=== PATIENT | female | born 1955 | race American Indian/Alaskan Native ===

== ENCOUNTER 2017-08-11 17:16 | Emergency (ER) | payer MEDICAID, OTHER, SELFPAY | END 2017-08-11 21:48 | disposition home or self-care (01) | PROVIDERS: Emergency Provider Emergency Medicine; Family Provider Family Medicine; PCP Family Medicine; Visit Provider Emergency Medicine | DX: R10.9 Unspecified abdominal pain (principal); K92.1 Melena | CPT/HCPCS: 74177; 80053; 81003; 83605; 83690; 85025; 93005; 93010; 96361; 96374; 96375; 96376; 99058; 99285; J1200; J2270; J2405; J2930; Q9967 ==

== ENCOUNTER 2017-10-06 08:10 | Day surgery (SDC) | payer MEDICAID, SELFPAY ==
--- NOTE | 2017-10-06 | PATH_ITS ---
[facility] Accession Number: [id number] . 01 Material submitted: . RECTAL . 02 Diagnosis: Rectum, Biopsies: Colorectal mucosa with no diagnostic abnormality. Negative for active or microscopic colitis. Negative for granulomata, dysplasia or malignancy. I/10/07/2017 . 02 Electronically signed: . Teodoro Bobo MD, PhD, Pathologist NPI- [id number] . 01 Gross description: . Received in one formalin-filled container, labeled with the patient's name, labeled rectal, are multiple less than 0.1 cm to 0.3 cm portions of tissue, which are filtered, wrapped, and entirely submitted in one cassette. ([id number]) /FRR . 02 Pathologist provided ICD-10: K62.5 . 02 CPT . 402416 Performed at: 01 [facility] [address] [id number] MD Enrique Escobedo MD Phone: [phone] Performed at: 02 [facility] [address] [place], [place] [id number] MD Marshall Sen MD Phone: [phone]
--- NOTE | 2017-10-06 08:08 | PM.HP.1 ---
History of Present Illness Date Patient Seen: 10/06/17 Time Patient Seen: 08:54 Chief complaint: COLONOSCOPY [id number] Narrative: 62-year-old medically complicated female status post partial colectomy for diverticulitis in the past who recently presented with pain and rectal bleeding. Colonoscopy is recommended. Patient History Comment: Her past medical history, past surgical history, family history, allergies, and medications have not changed since her initial evaluation in the office on August 22, 2017. That history physical examination is documented and on the chart. Family & Social History Family History: Reviewed 10/06/17 by Travis Miguel MD [facility] Home Medications Medication Instructions Recorded Confirmed Type montelukast [Singulair] 10 mg PO QDAY #30 tab 11/27/16 10/06/17 Rx atenolol 50 mg PO QDAY #30 tab 12/30/16 10/06/17 Rx diphenhydramine HCl [Benadryl 25 mg PO Q6HP PRN #120 tab 07/17/17 10/06/17 Rx Allergy] meloxicam [Mobic] 7.5 mg PO QDAY #30 tab 07/17/17 10/06/17 Rx docusate sodium 300 mg PO HS #0 07/27/17 10/06/17 History amitriptyline 50 mg PO HS #30 tab 07/31/17 10/06/17 Rx gabapentin 600 mg tablet 600 mg PO BID #60 tab 09/19/17 10/06/17 Rx tramadol 50 mg tablet 50 mg PO Q6HP PRN #120 tab 09/24/17 10/06/17 Rx albuterol sulfate 1.25 mg INHALATION BID 10/06/17 10/06/17 History albuterol sulfate [Proventil HFA] 1 puff INH BID 10/06/17 10/06/17 History beclomethasone dipropionate [Qvar] 1 puff IH BID 10/06/17 10/06/17 History furosemide 20 mg PO PRN PRN 10/06/17 10/06/17 History [id number] 2 drp OTIC SEE INSTRUCTIONS 10/06/17 10/06/17 History oxycodone 5 mg PO QID 10/06/17 10/06/17 History prednisone 40 mg PO AMCC PRN 10/06/17 10/06/17 History tiotropium bromide [Spiriva with 1 cap INHALATION DAILY 10/06/17 10/06/17 History HandiHaler] zolpidem 5 mg PO HSP 10/06/17 10/06/17 History Allergies Allergy/AdvReac Type Severity Reaction Status Date / Time barley [BARLEY] Allergy Severe reports Verified 10/06/17 08:25 sneezing and everything closes up iodine [IODINE] Allergy Mild BLISTER Verified 10/06/17 08:25 Review of Systems Review of Systems All systems reviewed & are unremarkable except as noted in HPI and below Exam Narrative Exam Narrative: Obese female in no acute distress. Alert oriented x3 Chest clear to auscultation. No wheezes today. Abdomen obese but soft. Notable for incisional hernia. No masses. Extremities show no clubbing or cyanosis. She does have bilateral lower extremity edema which is chronic. Objective Labs Labs: No recent laboratory radiographic studies since her evaluation of August 22, 2017. Assessment & Plan (1) Rectal bleeding: Current visit: Yes Status: Acute Plan: Assessment/Plan Narrative: 62-year-old female with rectal bleeding of unclear etiology. I reiterated my recommendation for colonoscopy. Technical details of the procedure were again reviewed. Risks, benefits, and alternatives were also reviewed as previously documented in my note of August 22, 2017. That note is on the chart today. Consent is on the chart as well. Patient agrees to proceed. Colonoscopy today as planned.
--- NOTE | 2017-10-06 08:15 | PM.PREOP ---
Pre-operative Note Interval Note Pre-op Check: History & Physical Reviewed by Physician, Exam Performed and History & Physical exam performed today H&P completed within 30 days and has changed as indicated here:: Patient seen and examined again today. History and physical examination as per note of August 22, 2017 is unchanged. Proceed with colonoscopy as planned. ASA Class (for procedural sedation): II
[2017-10-06] MEDS: SODIUM CHLORIDE 0.9% 1,000 ML 21 ML IV (08:48)
--- NOTE | 2017-10-06 09:15 | PM.OP.ENDO ---
Operative Date/Time/Diagnoses - Date of procedure: 10/06/17 Time of procedure: 09:15 Pre-op diagnosis: Rectal bleeding Post-op diagnosis: same (Likely secondary to internal hemorrhoids) Procedure & Clinicians Study performed: 1. Sedation per surgeon 2. Colonoscopy with cold forceps biopsies Same procedure as scheduled: Yes Indications: 62-year-old female who presented recently with rectal bleeding. Colonoscopy was recommended. Surgeon: Travis Miguel Procedure Notes SCOAP/Timeout: Yes Procedure in detail: After obtaining informed consent, the patient was brought to the GI suite and placed in the left lateral decubitus position on the examination table. After placement of appropriate monitors, the patient was given incremental doses of Versed and Fentanyl until an appropriate level of sedation was achieved. A time out was held per SCOAP protocol. A digital rectal examination was performed and did not reveal any masses or obstructing lesions. The colonoscope was gently passed into the patient's anus and the entire colon navigated to the level of the cecum with minimal difficulty. Patient had a widely patent colo colonic anastomosis at approximately 40 cm from the anal verge. Entire colonic length was approximately 70 cm. Terminal ileum was intubated and noted to be grossly normal. Once in the cecum, the scope was withdrawn being sure to go before and beyond all mucosal folds and prominences and get an excellent examination. The findings are noted above. No polyps or neoplasms are appreciated. Overall the bowel prep was moderately poor but we were able to achieve visualization of most of the colon with irrigation. At the level of the rectal vault, the scope was retroflexed and the internal anal canal was examined. Grade 3 internal hemorrhoids were noted. No other abnormalities. Random rectal biopsies were taken given that the rectal mucosa appeared minimally inflamed. The scope was straightened and air aspirated from the colon. The instrument was removed from the patient's body and the procedure was concluded. The patient was allowed to awaken from sedation without difficulty and taken to the post-anesthesia care unit in good condition. Scope withdrawal time: 7:06 min Sedation minutes: 14 Findings: internal hemorrhoids and other findings (See the above procedure note for details. No significant findings other than hemorrhoids however.) Specimen(s): other (Rectal biopsies) Complications: none Recommendations: Colonscopy in 5 years, High fiber diet and Will call with biopsy results Plan for aftercare: 1. Discharge to home 2. Follow up with primary physician later this week as scheduled Follow up: as needed Disposition: PACU
[2017-10-06 09:16] VITALS: BP 99/61; PULSE 81; RESP 20; TEMP 36.4; O2SAT 96
[2017-10-06] MEDS: MIDAZOLAM 5 MG/5 ML VIAL IV (09:18)
[2017-10-06] MEDS: fentaNYL 250 MCG/5 ML INJ IV (09:19)
[2017-10-06 09:22] VITALS: BP 101/72; PULSE 82; RESP 17; O2SAT 96
[2017-10-06 09:28] VITALS: BP 103/73; PULSE 79; RESP 18; O2SAT 97
[2017-10-06 09:32] VITALS: BP 114/73; PULSE 84; RESP 20; O2SAT 96
[2017-10-06 09:39] VITALS: BP 111/72; PULSE 82; RESP 15; TEMP 36.3; O2SAT 96
== END 2017-10-06 09:46 | disposition home or self-care (01) ==
PROVIDERS: Family Provider Family Medicine; PCP Family Medicine; Visit Provider Surgery
PROC: 0DJD8ZZ Inspection of Lower Intestinal Tract, Via Natural or Artificial Opening Endoscopic (ICD-10-PCS; CPT 45378; principal; 2017-10-06 08:45)
DX: K62.5 Hemorrhage of anus and rectum (principal); K64.2 Third degree hemorrhoids; Z90.49 Acquired absence of other specified parts of digestive tract
CPT/HCPCS: 45380; 99152; J2250; J3010

== ENCOUNTER 2017-10-24 09:09 | Inpatient (IN) | payer MEDICAID, OTHER, SELFPAY ==
[2017-10-24] VITALS (8 sets, daily range): BP systolic 120–156; BP diastolic 74–98; PULSE 93–115; RESP 16–22; TEMP 35.6–37.2; O2SAT 92–97; BMI 35.2; BMI 35.3
--- NOTE | 2017-10-24 09:25 | DI.CT.S_ITS ---
PROCEDURE: CT ABDOMEN PELVIS W CON INDICATIONS: pain with history of obstruction TECHNIQUE: After the administration of intravenous contrast, 5 mm thick sections acquired from the diaphragm to the symphysis. 5 mm coronal and sagittal reformats were acquired. For radiation dose reduction, the following was used: automated exposure control, adjustment of mA and/or kV according to patient size. COMPARISON: [facility], CT, ABDOMEN/PELVIS WITH CONTRAST, 07/25/2017, 11:10. [facility], CT, ABDOMEN/PELVIS WITH CONTRAST, 08/11/2017, 19:18. FINDINGS: Image quality: Excellent. ABDOMEN: Lung bases: Lung bases are clear. Heart size is normal. Solid organs: Liver is normal in size and enhancement. Gallbladder is normal. Biliary system is non dilated. Pancreas enhances normally. Spleen is normal in size and enhancement. No adrenal nodules. Kidneys demonstrate normal size and enhancement, without hydronephrosis. Peritoneum and bowel: Stomach is normal in size and filled with fluid. Proximal small bowel loops are mildly distended and filled with fluid measuring up to 4.1 cm in diameter. There are multiple air-fluid levels in mid abdomen. There is a transitional point in mid abdomen (series 2 image 65). Distal small bowel loops are decompressed. The findings are consistent with small bowel obstruction. Appendix is normal. Moderate amount of stool in colon. No free fluid or air. Nodes and vessels: No retroperitoneal or mesenteric adenopathy by size criteria. Aorta and inferior vena cava are normal in size. Miscellaneous: There is postsurgical changes in the anterior abdominal wall. There is diastasis of rectus sheath and mild atrophy of the left rectus abdominis muscle. A wide-necked ventral hernia containing a small bowel loop is noted in the left anterior abdominal wall, unchanged from prior examinations. This. PELVIS: Genitourinary: Bladder wall thickness is normal. Miscellaneous: No inguinal hernias or adenopathy. Bones: No suspicious bony lesions. Degenerative changes are noted in lumbar spine. There is severe central canal stenosis at L4-L5. No vertebral body compression fractures. IMPRESSION: 1. Small bowel obstruction. The transitional point is in the mid abdomen 2. A left lower anterior abdominal wall ventral hernia with wide-neck appears unchanged from prior examinations. 3. Degenerative changes in lumbar spine with severe central canal stenosis at L4-L5. Dictated by: Michi Isabel M.D. on 10/24/2017 at 10:47 Approved by: Michi Isabel M.D. on 10/24/2017 at 10:57
--- NOTE | 2017-10-24 09:32 | ED.ABDPAIN ---
HPI - Abdominal Pain General Chief Complaint: Abdominal Pain Stated Complaint: SICK ALL NIGHT Time Seen by Provider: 10/24/17 09:25 Source: patient and family Mode of arrival: wheelchair Limitations: no limitations History of Present Illness HPI narrative: Patient is a 62-year-old female who presents with abdominal pain and vomiting. She has a history of frequent recurrent bowel obstructions. She has been vomiting since last evening. She has diffuse all over abdominal pain. No fever or chills. Related Data Home Medications Medication Instructions Recorded Confirmed docusate sodium 300 mg PO HS #0 07/27/17 10/24/17 albuterol sulfate 1.25 mg INHALATION BID 10/06/17 10/24/17 albuterol sulfate [Proventil HFA] 1 puff INH BID 10/06/17 10/24/17 furosemide 20 mg PO PRN PRN 10/06/17 10/24/17 tiotropium bromide [Spiriva with 1 cap INHALATION DAILY 10/06/17 10/24/17 HandiHaler] bisacodyl 5 mg tablet,delayed 5 mg PO BEDTIME 10/16/17 10/24/17 release ipratropium-albuterol 1 dose INHALATION QID PRN 10/24/17 10/24/17 oxycodone 1 tab PO Q4H PRN 10/24/17 10/24/17 Previous Rx's Medication Instructions Recorded montelukast [Singulair] 10 mg PO QDAY #30 tab 11/27/16 atenolol 50 mg PO QDAY #30 tab 12/30/16 diphenhydramine HCl [Benadryl 25 mg PO Q6HP PRN #120 tab 07/17/17 Allergy] meloxicam [Mobic] 7.5 mg PO QDAY #30 tab 07/17/17 amitriptyline 50 mg PO HS #30 tab 07/31/17 tramadol 50 mg tablet 50 mg PO Q6HP PRN #120 tab 10/16/17 zolpidem 10 mg tablet 5 mg PO HSP #15 tab 10/16/17 gabapentin 600 mg tablet 600 mg PO BID #60 tab 10/23/17 Allergies Allergy/AdvReac Type Severity Reaction Status Date / Time barley [BARLEY] Allergy Severe reports Verified 10/24/17 09:19 sneezing and everything closes up iodine [IODINE] Allergy Mild BLISTER Verified 10/24/17 09:19 Review of Systems Review of Systems GENERAL: Denies chills, fatigue, malaise, fever, sweats, travel HEENT: Denies sinus pain, ear pain, sore throat, difficulty swallowing, neck pain RESPIRATORY: Denies dyspnea, cough, wheezing, hemoptysis, sputum. CARDIOVASCULAR: Denies chest pain, palpitations, orthopnea, edema GASTROINTESTINAL: See HPI : Denies dysuria, frequency, incontinence, hematuria, urinary retention, flank pain. MUSCULOSKELETAL: Denies weakness, joint pain, or bony pain SKIN: No rash, no erythema, no pruritus NEUROLOGIC: Denies weakness, dizziness, headache, numbness, change in speech, confusion PSYCHIATRIC: No concerning psychosocial issues. 12 point review of systems is negative except for those stated above and HPI [facility] Medical History Obesity (BMI 30-39.9) (Chronic) Type 2 diabetes mellitus (Chronic) COPD (chronic obstructive pulmonary disease) (Chronic) Chronic pain syndrome (Chronic 02/02/15) Essential hypertension (Chronic 02/16/15) Sjogrens syndrome (Chronic) Rectal bleeding (Inactive) Leg edema (Chronic) Fibromyalgia (Chronic) Insomnia (Chronic 11/25/14) Diverticulosis of colon (without mention of hemorrhage) (Chronic 12/18/10) Panlobular emphysema (Chronic 02/02/15) Chronic obstructive bronchitis (Chronic 02/16/15) Obstructive sleep apnea syndrome (Chronic 02/16/15) Tubular adenoma (Resolved ~2011) Surgical History History of colonoscopy (Resolved ~2011) History of colonoscopy (Resolved ~2014) History of oophorectomy (Resolved ~2014) History of ventral hernia repair (Resolved ~2014) Family History: Reviewed 10/24/17 by Yehuda Fung MD Social History household members: significant other Smoking Status: Former smoker alcohol intake: former Exam Initial Vital Signs Initial Vital Signs: Vital Signs Temperature 96.1 F L 10/24/17 09:19 Pulse Rate 94 H 10/24/17 09:19 Respiratory Rate 22 10/24/17 09:19 Blood Pressure 156/98 H 10/24/17 09:19 Pulse Oximetry 94 10/24/17 09:19 Const General: cooperative and acute distress (Dry heaving) Nutritional Appearance: overweight Orientation: alert, awake and oriented x3 Eyes General: appearance normal, both eyes and all related structures Neck Neck: normal visual inspection Chest Chest: normal inspection of the chest Resp Effort & Inspection: normal respiratory effort, able to speak in complete sentences, no respiratory distress and no use of accessory muscles Auscultation: clear to auscultation bilaterally, no rales, no rhonchi and no wheezes Cardio Rate: regular rate Rhythm: regular rhythm Heart Sounds: no click, no gallops, no murmurs and no rubs Pulses: normal peripheral pulses GI Palpation: No firm, No rigid and tender (Diffusely) Other: Distended Skin General: no rashes or lesions noted, No jaundice and No petechiae Neuro General: alert, oriented x3, gait normal and no focal motor deficits Speech: speech normal Extrem General: full ROM, no clubbing, cyanosis or edema, no pedal edema and no calf tenderness Course Orders Ordered: ED Orders 10/24/17 09:25 CT abdomen pelvis w con Stat 10/24/17 09:37 Complete Blood Count AUTO DIFF Stat Comprehensive Metabolic Panel Stat Lactate (Lactic Acid) Stat Lipase Stat 10/24/17 12:21 Urine Microscopic Stat 10/24/17 13:40 Consult to Discharge Planning Routine Consult to Physician Routine Education, smoking cessation ONGOING Education, smoking cessation ONGOING 10/25/17 05:00 A1C [Hemoglobin A1C %] Routine Basic Metabolic Panel Routine Complete Blood Count AUTO DIFF Routine Albuterol (Ventolin) 2.5 mg INH [id number] PRN PRN Reason: Shortness Of Breath Dextrose (D50w) 25 gm IV PRN PRN PRN Reason: Hypoglycemia Enoxaparin Sodium (Lovenox) 40 mg SUBCUT DAILY [facility] Dextrose/Sodium Chloride (Dextrose 5%-0.9% Ns) 1,000 mls @ 100 mls/hr IV CONT GUIDO Last Admin: 10/24/17 14:20 Dose: 100 mls/hr HYDROMORPH[employer] (Dilaudid 6 Mg/30 Ml) 6 mg in 30 mls @ 0 mls/hr IV Q8HR GUIDO Last Admin: 10/24/17 14:21 Dose: Insulin Aspart (Novolog Flexpen) 0 unit SUBCUT ACHS GUIDO; Protocol Lorazepam (Ativan) 1 mg IV BEDTIME GUIDO Naloxone HCl (Narcan) 0.2 mg IV Q2MIN PRN PRN Reason: Opiate Reversal Naloxone HCl (Narcan) 0.2 mg IV Q2MIN PRN; Protocol PRN Reason: Opiate Reversal Ondansetron HCl (Zofran) 4 mg IV Q6HR PRN PRN Reason: Nausea And Vomiting Last Admin: 10/24/17 14:22 Dose: 4 mg Tiotropium [place] (Spiriva) 18 mcg INH RTDAILY GUIDO Discontinued Medications Albuterol/Ipratropium (Duoneb) 3 ml INH [id number] GUIDO Diphenhydramine HCl (Benadryl) 25 mg IV NOW ONE Stop: 10/24/17 09:57 Last Admin: 10/24/17 10:07 Dose: 25 mg Hydromorphone HCl (Dilaudid) 1 mg IV NOW ONE Stop: 10/24/17 09:27 Last Admin: 10/24/17 10:07 Dose: 1 mg Sodium Chloride (Normal Saline 0.9%) 1,000 mls @ 150 mls/hr IV CONT GUIDO Last Admin: 10/24/17 11:08 Dose: Not Given Sodium Chloride (Normal Saline 0.9%) 1,000 mls @ 1,000 mls/hr IV BOLUS ONE Stop: 10/24/17 10:25 Last Infusion: 10/24/17 11:09 Dose: 0 mls/hr Admin: 10/24/17 10:08 Dose: 1,000 mls/hr Methylprednisolone (Solu-Medrol 125 Mg Vial) 125 mg IV NOW ONE Stop: 10/24/17 09:57 Last Admin: 10/24/17 10:07 Dose: 125 mg Ondansetron HCl (Zofran) 4 mg IV NOW ONE Stop: 10/24/17 09:26 Last Admin: 10/24/17 10:08 Dose: 4 mg Consultations Consultation #1: Dr. ureña has been updated on patient's symptoms and test results. Agrees with consultation and will follow along as needed recommends admission to hospitalist. Consultation #2: Dr. Fung has been updated on patient's symptoms and test results. He will put in orders. Vital Signs - 8 hr 10/24/17 11:04 10/24/17 13:30 10/24/17 13:32 Temperature 97.5 F L Pulse Rate 93 H 96 H Respiratory Rate 18 16 Blood Pressure 146/90 H Blood Pressure [Left Arm] 137/84 H Pulse Oximetry 97 96 96 10/24/17 16:00 Temperature 97.3 F L Pulse Rate 99 H Respiratory Rate 16 Blood Pressure 142/95 H Blood Pressure [Left Arm] Pulse Oximetry 96 MDM - Abdominal Pain Lab Data Attestation: I reviewed the patient's lab results. Result diagrams: 10/24/17 09:37 10/24/17 09:37 Lab Results 10/24/17 10/24/17 10/24/17 Range/Units 09:37 09:37 09:37 WBC 16.9 H (4.5-11.0) X10^3/uL RBC 6.16 H (4.0-5.2) X10^6/uL Hgb 18.0 H (12.0-16.0) g/dL Hct 52.8 H (36-46) % MCV 85.7 (80-100) fL MCH 29.2 (26-34) PG MCHC 34.1 (30-36) % RDW 14.8 (11.6-14.8) % Plt Count 352 (150-400) X10^3/uL Neut % (Auto) 73.0 (50-75) % Lymph % (Auto) 18.5 L (25-40) % [place] % (Auto) 6.9 (3-14) % Eos % (Auto) 0.9 L (2-4) % Baso % (Auto) 0.7 (0-2) % Neut # (Auto) 43772 H (4495-1872) /uL Sodium 144 (137-145) mmol/L Potassium 5.0 (3.4-5.1) mmol/L Chloride 100 (98-107) mmol/L Carbon Dioxide 29 (22-32) mmol/L BUN 16 (7-17) mg/dL Creatinine 0.90 (0.52-1.04) mg/dL Estimated GFR > 60.0 (>60) mL/min BUN/Creatinine Ratio 17.8 (6-22) Glucose 176 H (80-110) mg/dL Lactate 2.1 (0.7-2.1) mmol/L Calcium 10.6 H (8.4-10.2) mg/dL Total Bilirubin 0.7 (0.2-1.3) mg/dL AST 39 H (14-36) IU/L ALT 22 (9-52) IU/L Alkaline Phosphatase 146 H (38-126) U/L Total Protein 8.9 H (6.3-8.2) g/dL Albumin 4.9 (3.5-5.0) g/dL Globulin 4.0 (1.7-4.1) g/dL Albumin/Globulin Ratio 1.2 (1.0-2.8) Lipase 99 (23-300) U/L Point of care testing: Urine Dip Bedside Urine Glucose Negative Bedside Urine Bilirubin - Negative Bedside Urine Ketone - Negative Urine Specific [place] 1.010 Bedside Urine Occult Blood - Negative Bedside Urine pH 6.0 Bedside Urine Urobilinogen - Negative Bedside Urine Nitrite + Positive Bedside Urine Leukocytes - Negative Esterase Imaging Data CT scan - abdomen: Radiologist's impression: PROCEDURE: CT ABDOMEN PELVIS W CON INDICATIONS: pain with history of obstruction TECHNIQUE: After the administration of intravenous contrast, 5 mm thick sections acquired from the diaphragm to the symphysis. 5 mm coronal and sagittal reformats were acquired. For radiation dose reduction, the following was used: automated exposure control, adjustment of mA and/or kV according to patient size. COMPARISON: [facility], CT, ABDOMEN/PELVIS WITH CONTRAST, 07/25/2017, 11:10. [facility], CT, ABDOMEN/PELVIS WITH CONTRAST, 08/11/2017, 19:18. FINDINGS: Image quality: Excellent. ABDOMEN: Lung bases: Lung bases are clear. Heart size is normal. Solid organs: Liver is normal in size and enhancement. Gallbladder is normal. Biliary system is non dilated. Pancreas enhances normally. Spleen is normal in size and enhancement. No adrenal nodules. Kidneys demonstrate normal size and enhancement, without hydronephrosis. Peritoneum and bowel: Stomach is normal in size and filled with fluid. Proximal small bowel loops are mildly distended and filled with fluid measuring up to 4.1 cm in diameter. There are multiple air-fluid levels in mid abdomen. There is a transitional point in mid abdomen (series 2 image 65). Distal small bowel loops are decompressed. The findings are consistent with small bowel obstruction. Appendix is normal. Moderate amount of stool in colon. No free fluid or air. Nodes and vessels: No retroperitoneal or mesenteric adenopathy by size criteria. Aorta and inferior vena cava are normal in size. Miscellaneous: There is postsurgical changes in the anterior abdominal wall. There is diastasis of rectus sheath and mild atrophy of the left rectus abdominis muscle. A wide-necked ventral hernia containing a small bowel loop is noted in the left anterior abdominal wall, unchanged from prior examinations. This. PELVIS: Genitourinary: Bladder wall thickness is normal. Miscellaneous: No inguinal hernias or adenopathy. Bones: No suspicious bony lesions. Degenerative changes are noted in lumbar spine. There is severe central canal stenosis at L4-L5. No vertebral body compression fractures. IMPRESSION: 1. Small bowel obstruction. The transitional point is in the mid abdomen 2. A left lower anterior abdominal wall ventral hernia with wide-neck appears unchanged from prior examinations. 3. Degenerative changes in lumbar spine with severe central canal stenosis at L4-L5. Dictated by: Michi Isabel M.D. on 10/24/2017 at 10:47 Approved by: Michi Isabel M.D. on 10/24/2017 at 10:57 MDM Narrative Medical decision making narrative: Patient has recurrent bowel obstruction. An NG tube is placed though she is feeling much better after Zofran and Dilaudid. Leukocytosis with normal lactic acid. Initially thought to be from vomiting. She is hemoconcentrated with elevated hemoglobin and hematocrit as well. However her urine is positive for nitrate, urine was not back at the time of consult thing admitting physician. Discharge Plan Departure Patient Disposition: Admitted As Inpatient Clinical Impression: Small bowel obstruction due to adhesions Discharge Date/Time: 10/24/17 13:35 Interventions: ED Discharge Assessment Last Done: 10/24/17 13:34 Admit Date/Time: 10/24/17 11:48 Admit Provider: Yehuda Fung
[2017-10-24 09:46] LABS: Add Manual Diff / Slide Review NO; Basophils Percent Auto 0.7 % (0-2); Eosinophils Percent Auto 0.9 % (2-4); Hematocrit 52.8 % (36-46); Lymphocytes Percent Auto 18.5 % (25-40); Mean Corpuscular HGB Conc 34.1 % (30-36); Mean Corpuscular Hemoglobin 29.2 PG (26-34); Mean Corpuscular Volume 85.7 fL (80-100); Monocytes Percent Auto 6.9 % (3-14); Neutrophils Absolute Auto 12400 /uL (3000-5900); Platelet Count 352 X10^3/uL (150-400); Red Blood Cell Count 6.16 X10^6/uL (4.0-5.2); Red Cell Distribution Width 14.8 % (11.6-14.8); White Blood Cell Count 16.9 X10^3/uL (4.5-11.0)
[2017-10-24 09:57] LABS: Alanine Aminotransferase 22 IU/L (9-52); Albumin 4.9 g/dL (3.5-5.0); Albumin Globulin Ratio 1.2 (1.0-2.8); Alkaline Phosphatase 146 U/L (38-126); Aspartate Aminotransferase 39 IU/L (14-36); BUN Creatinine Ratio 17.8 (6-22); Bilirubin Total 0.7 mg/dL (0.2-1.3); Blood Urea Nitrogen 16 mg/dL (7-17); Calcium 10.6 mg/dL (8.4-10.2); Carbon Dioxide 29 mmol/L (22-32); Chloride 100 mmol/L (98-107); Estimated Glomerular Filt Rate > 60.0 mL/min (>60); Glucose 176 mg/dL (80-110); HEMOLYSIS 28 (0-50); Lactate (Lactic Acid) 2.1 mmol/L (0.7-2.1); Lipase 99 U/L (23-300); Sodium 144 mmol/L (137-145); Total Protein 8.9 g/dL (6.3-8.2)
[2017-10-24] MEDS: diphenhydrAMINE 50 MG/ML VIAL 25 MG IV (10:07)
[2017-10-24] MEDS: HYDROMORPHONE 2 MG INJ 1 MG IV (10:07)
[2017-10-24] MEDS: methylPREDNISolone 125 MG/2 ML VIAL IV (10:07)
[2017-10-24] MEDS: SODIUM CHLORIDE 0.9% 1,000 ML 1000 ML IV (10:08)
[2017-10-24] MEDS: ONDANSETRON 4 MG/2 ML INJ IV ×3 (10:08→21:23)
--- NOTE | 2017-10-24 12:02 | PC.NURSE ---
16fr inserted per provider 400ml gastric fluid initial reading patient tolerated procedure patient appears in no acute distress at this time.
--- NOTE | 2017-10-24 13:32 | PM.HP.1 ---
History of Present Illness Date Patient Seen: 10/24/17 Time Patient Seen: 13:32 Chief complaint: SICK ALL NIGHT Narrative: Patient presented to the [facility] Emergency Department with persistent emesis and abdominal pain. Has longstanding history prior small bowel obstructions which presented very much like this. In the ER she was found to have recurrent bowel obstruction and is admitted for same Patient was feeling fine earlier in the week specifically on the 22 of October all was well. However early in the morning of the 24 of October began to have the emesis with the abdominal pain and eventually presenting to the hospital as above. Patient History Medical History Obesity (BMI 30-39.9) (Chronic) Type 2 diabetes mellitus (Chronic) COPD (chronic obstructive pulmonary disease) (Chronic) Chronic pain syndrome (Chronic 02/02/15) Essential hypertension (Chronic 02/16/15) Sjogrens syndrome (Chronic) Rectal bleeding (Inactive) Leg edema (Chronic) Fibromyalgia (Chronic) Insomnia (Chronic 11/25/14) Diverticulosis of colon (without mention of hemorrhage) (Chronic 12/18/10) Panlobular emphysema (Chronic 02/02/15) Chronic obstructive bronchitis (Chronic 02/16/15) Obstructive sleep apnea syndrome (Chronic 02/16/15) Tubular adenoma (Resolved ~2011) Surgical History History of colonoscopy (Resolved ~2011) History of colonoscopy (Resolved ~2014) History of oophorectomy (Resolved ~2014) History of ventral hernia repair (Resolved ~2014) Family & Social History Family History: Reviewed 10/24/17 by Yehuda Fung MD Social History: household members significant other Tobacco & Substance use: Smoking Status Former smoker Meds Home Medications Medication Instructions Recorded Confirmed Type montelukast [Singulair] 10 mg PO QDAY #30 tab 11/27/16 10/24/17 Rx atenolol 50 mg PO QDAY #30 tab 12/30/16 10/24/17 Rx diphenhydramine HCl [Benadryl 25 mg PO Q6HP PRN #120 tab 07/17/17 10/24/17 Rx Allergy] meloxicam [Mobic] 7.5 mg PO QDAY #30 tab 07/17/17 10/24/17 Rx docusate sodium 300 mg PO HS #0 07/27/17 10/24/17 History amitriptyline 50 mg PO HS #30 tab 07/31/17 10/24/17 Rx albuterol sulfate 1.25 mg INHALATION BID 10/06/17 10/24/17 History albuterol sulfate [Proventil HFA] 1 puff INH BID 10/06/17 10/24/17 History furosemide 20 mg PO PRN PRN 10/06/17 10/24/17 History tiotropium bromide [Spiriva with 1 cap INHALATION DAILY 10/06/17 10/24/17 History HandiHaler] bisacodyl 5 mg tablet,delayed 5 mg PO BEDTIME 10/16/17 10/24/17 History release tramadol 50 mg tablet 50 mg PO Q6HP PRN #120 tab 10/16/17 10/24/17 Rx zolpidem 10 mg tablet 5 mg PO HSP #15 tab 10/16/17 10/24/17 Rx gabapentin 600 mg tablet 600 mg PO BID #60 tab 10/23/17 10/24/17 Rx ipratropium-albuterol 1 dose INHALATION QID PRN 10/24/17 10/24/17 History oxycodone 1 tab PO Q4H PRN 10/24/17 10/24/17 History Allergies Allergy/AdvReac Type Severity Reaction Status Date / Time barley [BARLEY] Allergy Severe reports Verified 10/24/17 09:19 sneezing and everything closes up iodine [IODINE] Allergy Mild BLISTER Verified 10/24/17 09:19 Review of Systems Constitutional Constitutional: Denies excessive sweating, Denies fever(s), Denies headache(s), Denies weakness, Denies weight gain and Denies weight loss Eyes Eyes: Denies change in vision, Denies itchy eyes, Denies loss of vision and Denies other visual disturbances ENT Ears, Nose, Mouth, and Throat: No difficulty swallowing, No headache(s) and No neck pain Cardiovascular Cardiovascular: Denies chest pain, Denies fainting, Denies fast heart rate, Denies irregular heart rhythm, Denies rapid, pounding, or irregular heartbeat, Denies shortness of breath, Denies shortness of breath with activity and Denies slow heart rate Respiratory Respiratory: Denies dyspnea and Denies dyspnea on exertion Gastrointestinal Gastrointestinal: Reports as per HPI, Reports abdominal pain, Reports bloating, Denies change in bowel habits, Denies change in stool character, Denies dysphagia, Reports nausea, Denies vomiting, Denies hematemesis and Reports other (Intractable vomiting) Genitourinary Genitourinary: Denies hematuria, Denies urinary frequency and Denies difficulty voiding Musculoskeletal Musculoskeletal: Denies abnormal gait, Denies myalgias, Denies arthralgias, Denies limited range of motion and Denies neck pain Integumentary/Breasts Skin/Breast: Denies bleeding lesions, Denies change in pigmentation, Denies changing lesions, Denies new lesions, Denies rash, Denies skin swelling, Denies sores and Denies jaundice Neurologic Neurologic: Denies abnormal gait, Denies behavioral changes, Denies confusion, Denies syncope, Denies headache(s), Denies loss of vision, Denies memory loss and Denies weakness Psychiatric Psychiatric: Denies behavioral changes, Denies change in appetite, Denies confusion, Denies difficulty concentrating, Denies auditory hallucinations, Denies memory loss, Denies mood swings and Denies suicidal ideation Endocrine Endocrine: Denies excessive sweating and Denies palpitations Hematologic/Lymphatic Hematologic/Lymphatic: Denies easy bleeding, Denies easy bruising and Denies lymphadenopathy Allergic/Immunologic Allergic/Immunologic: Denies itchy eyes Exam Vital Signs (past 8 hours): - 10/24/17 09:19 10/24/17 11:04 Temperature 96.1 F L Pulse Rate 94 H 93 H Respiratory Rate 22 18 Blood Pressure 156/98 H Blood Pressure [Left Arm] 137/84 H Pulse Oximetry 94 97 Oxygen Delivery Method Room Air Narrative Exam Narrative: Middle-aged, somewhat older than stated age appearing female in no obvious distress lying in the ER on a gurney with an NG tube in place HEENT-normocephalic atraumatic, NG in place Neck-no lymphadenopathy Lungs-good breath sounds clear no wheezes Heart-regular rate and rhythm Abdomen-no bowel tones, modestly distended, tenderness to palpation throughout without rebound or guarding, scar is present on anterior abdomen with probable ventral hernia to the left midline in the superior quadrant Extremities-no cyanosis clubbing or edema Neuro-alert and oriented x3, no obvious focal defects, gait not tested Objective Labs Result Diagrams: 10/24/17 09:37 07/06/18 09:37 Labs: Laboratory Results - last 24 hr 10/24/17 10/24/17 10/24/17 09:37 09:37 09:37 WBC 16.9 H RBC 6.16 H Hgb 18.0 H Hct 52.8 H MCV 85.7 MCH 29.2 MCHC 34.1 RDW 14.8 Plt Count 352 Neut % (Auto) 73.0 Lymph % (Auto) 18.5 L [place] % (Auto) 6.9 Eos % (Auto) 0.9 L Baso % (Auto) 0.7 Neut # (Auto) 01183 H Sodium 144 Potassium 5.0 Chloride 100 Carbon Dioxide 29 BUN 16 Creatinine 0.90 Estimated GFR > 60.0 BUN/Creatinine Ratio 17.8 Glucose 176 H Lactate 2.1 Calcium 10.6 H Total Bilirubin 0.7 AST 39 H ALT 22 Alkaline Phosphatase 146 H Total Protein 8.9 H Albumin 4.9 Globulin 4.0 Albumin/Globulin Ratio 1.2 Lipase 99 Assessment & Plan Plan: Assessment/Plan Narrative: 1. Small bowel obstruction-admit for patient to be NPO with IV fluids and IV antiemetics and pain meds as needed. Hopefully this would be much shorter course then her last admission which was much longer extended and required an extended time on TPN etc. Surgery has been consulted and will follow along. 2. COPD-appears to be stable from that standpoint. Will continue her on her chronic inhalers and albuterol as necessary. 3. Hypertension-continue usual medications 4. Rheumatological-patient with fibromyalgia and/or Sjogren's disease. Monitor for flare 5. VTE prophylaxis-Lovenox for now. Hopefully we can avoid surgery and that certainly would be right away 6. Code status-patient is a full code 7. Diabetes-patient with abnormal hemoglobin A1c of 6.7 in May of this year. No more recent numbers. Blood sugars been elevated in the past. Will watch carefully with coverage insulin for now if necessary utilized basal long-acting insulin as well. 8. Obesity-this is chronic course in longstanding. Will complicate her evaluation management here in the hospital. Overall patient clearly deserves inpatient hospitalization will be in the hospital greater than 48 hr which will include 2 separate midnights. She will be admitted for a bowel obstruction which required bowel rest and IV fluids as well as IV antiemetics and medication.
[2017-10-24] MEDS: DEXTROSE 5%-0.9% NS 1,000 ML 100 ML IV (14:20)
[2017-10-24] MEDS: INSULIN ASPART 100 UNIT/ML INSULN PEN SUBCUT (17:56)
[2017-10-24] MEDS: LORazepam 2 MG/ML SYRINGE 1 MG IV (21:23)
[2017-10-24] MEDS: HYDROMORPHONE PCA 6 MG/30 ML PCA.VIAL IV (21:29)
[2017-10-24 22:14] LABS: RBC Urine None Seen (0-5/HPF)
[2017-10-24 22:22] LABS: Bacteria Urine Many (>30); Culture Indicated Urine Specimen Cultured; Squamous Epithelial Cell Urine 1-5 /HPF; WBC Urine 1-5/HPF (0-5/HPF)
--- NOTE | 2017-10-24 22:57 | PC.NURSE ---
Evening Shift Note A&O, VSS, 96% on RA. No complaints of pain using Dilaudid SCI[employer]IFIC DAT[employer]ASE CURATOR, 2.8mg used this shift. NG tube to low int suction, nausea treated w/ IV Zofran. Pt up to bathroom w/ SBA. Urine foul smelling per float nurse and UA sent, UA positive and MD paged. No new orders and awaiting culture for treatment.
[2017-10-25] VITALS (9 sets, daily range): BP systolic 120–142; BP diastolic 66–78; PULSE 82–99; RESP 16–20; TEMP 36.3–36.8; O2SAT 91–97
[2017-10-25] MEDS: DEXTROSE 5%-0.9% NS 1,000 ML 100 ML IV ×3 (00:39→21:45)
[2017-10-25 05:38] LABS: Add Manual Diff / Slide Review NO; Basophils Percent Auto 0.3 % (0-2); Hematocrit 40.3 % (36-46); Hemoglobin 13.3 g/dL (12.0-16.0); Mean Corpuscular Hemoglobin 28.6 PG (26-34); Mean Corpuscular Volume 86.8 fL (80-100); Monocytes Percent Auto 9.5 % (3-14); Neutrophils Absolute Auto 9600 /uL (3000-5900); Neutrophils Percent Auto 77.2 % (50-75); Platelet Count 268 X10^3/uL (150-400); Red Blood Cell Count 4.64 X10^6/uL (4.0-5.2); Red Cell Distribution Width 14.9 % (11.6-14.8); White Blood Cell Count 12.4 X10^3/uL (4.5-11.0)
[2017-10-25 05:40] LABS: BUN Creatinine Ratio 18.6 (6-22); Blood Urea Nitrogen 13 mg/dL (7-17); Calcium 8.7 mg/dL (8.4-10.2); Carbon Dioxide 27 mmol/L (22-32); Chloride 110 mmol/L (98-107); Estimated Glomerular Filt Rate > 60.0 mL/min (>60); Glucose 146 mg/dL (80-110); HEMOLYSIS < 15 (0-50); Potassium 4.3 mmol/L (3.4-5.1); Sodium 144 mmol/L (137-145)
[2017-10-25 05:54] LABS: Hemoglobin A1C% w Est Avg Glu 6.1 % (4.0-6.0)
[2017-10-25] MEDS: HYDROMORPHONE PCA 6 MG/30 ML PCA.VIAL IV ×3 (06:24→21:44)
--- NOTE | 2017-10-25 09:09 | P.CONS_ITS ---
History of Present Illness Date Patient Seen: 10/25/17 Time Patient Seen: 07:13 Chief complaint: SICK ALL NIGHT Reason for consult: Small bowel obstruction Requesting provider: Yehuda Fung Narrative: Hilary is a very nice 62 year old lady who is well known to our service through multiple prior encounters. She presented to the emergency room yesterday complaining of abdominal pain with nausea and vomiting. She was admitted to Dr. Fung with small-bowel obstruction. Hilary has an extensive past medical history including many abdominal operations. In May of 2016, she underwent an extensive lysis of adhesions followed by repair of abdominal wall hernias with onlay mesh. The operation was noted to be extremely difficult with a hostile abdomen. Her stay in the hospital was quite extended and she required TPN for supplementation for many weeks. She has been fairly well from a bowel perspective since that time. This is her 1st admission for obstruction of which I am aware since that episode. She was seen by Dr. Miguel in the past few weeks for rectal bleeding and had a normal colonoscopy. Currently, she reports she is not having significant abdominal pain. She is upset that were giving her IV fluid and says it kept her up all night having to urinate constantly. She reports that she has been passing flatus. She has not had a bowel movement since admission. [facility] Medical History Obesity (BMI 30-39.9) (Chronic) Type 2 diabetes mellitus (Chronic) COPD (chronic obstructive pulmonary disease) (Chronic) Chronic pain syndrome (Chronic 02/02/15) Essential hypertension (Chronic 02/16/15) Sjogrens syndrome (Chronic) Rectal bleeding (Inactive) Leg edema (Chronic) Fibromyalgia (Chronic) Insomnia (Chronic 11/25/14) Diverticulosis of colon (without mention of hemorrhage) (Chronic 12/18/10) Panlobular emphysema (Chronic 02/02/15) Chronic obstructive bronchitis (Chronic 02/16/15) Obstructive sleep apnea syndrome (Chronic 02/16/15) Tubular adenoma (Resolved ~2011) Surgical History History of colonoscopy (Resolved ~2011) History of colonoscopy (Resolved ~2014) History of oophorectomy (Resolved ~2014) History of ventral hernia repair (Resolved ~2014) Family History Father Stroke, Onset Age: 76 Social History household members: significant other Smoking Status: Former smoker alcohol intake: former Meds Home Medications Medication Instructions Recorded Confirmed Type montelukast [Singulair] 10 mg PO QDAY #30 tab 11/27/16 10/24/17 Rx atenolol 50 mg PO QDAY #30 tab 12/30/16 10/24/17 Rx diphenhydramine HCl [Benadryl 25 mg PO Q6HP PRN #120 tab 07/17/17 10/24/17 Rx Allergy] meloxicam [Mobic] 7.5 mg PO QDAY #30 tab 07/17/17 10/24/17 Rx docusate sodium 300 mg PO HS #0 07/27/17 10/24/17 History amitriptyline 50 mg PO HS #30 tab 07/31/17 10/24/17 Rx albuterol sulfate 1.25 mg INHALATION BID 10/06/17 10/24/17 History albuterol sulfate [Proventil HFA] 1 puff INH BID 10/06/17 10/24/17 History furosemide 20 mg PO PRN PRN 10/06/17 10/24/17 History tiotropium bromide [Spiriva with 1 cap INHALATION DAILY 10/06/17 10/24/17 History HandiHaler] bisacodyl 5 mg tablet,delayed 5 mg PO BEDTIME 10/16/17 10/24/17 History release tramadol 50 mg tablet 50 mg PO Q6HP PRN #120 tab 10/16/17 10/24/17 Rx zolpidem 10 mg tablet 5 mg PO HSP #15 tab 10/16/17 10/24/17 Rx gabapentin 600 mg tablet 600 mg PO BID #60 tab 10/23/17 10/24/17 Rx ipratropium-albuterol 1 dose INHALATION QID PRN 10/24/17 10/24/17 History oxycodone 1 tab PO Q4H PRN 10/24/17 10/24/17 History Allergies Allergy/AdvReac Type Severity Reaction Status Date / Time barley [BARLEY] Allergy Severe reports Verified 10/24/17 09:19 sneezing and everything closes up iodine [IODINE] Allergy Mild BLISTER Verified 10/24/17 09:19 Review of Systems Review of Systems All systems reviewed & are unremarkable except as noted in HPI and below Exam Vital Signs (past 8 hours): - 10/25/17 03:00 Temperature 98.2 F Pulse Rate 82 Respiratory Rate 16 Blood Pressure 121/66 H Pulse Oximetry 91 Oxygen Delivery Method Room Air Oxygen Flow Rate 0 Narrative Exam Narrative: Pleasant and sleepy 62-year-old lady in no distress. She is able to move around in her bed without difficulty and without discomfort. Denies any abdominal pain at this time and denies nausea. Abdomen: Soft, healed abdominal incision consistent with her history. No new hernia palpated. Nontender to palpation. Active bowel sounds. Objective Labs Result Diagrams: 10/25/17 05:19 10/25/17 05:19 Labs: Laboratory Results - last 24 hr 10/24/17 10/24/17 10/24/17 09:37 09:37 09:37 WBC 16.9 H RBC 6.16 H Hgb 18.0 H Hct 52.8 H MCV 85.7 MCH 29.2 MCHC 34.1 RDW 14.8 Plt Count 352 Neut % (Auto) 73.0 Lymph % (Auto) 18.5 L [place] % (Auto) 6.9 Eos % (Auto) 0.9 L Baso % (Auto) 0.7 Neut # (Auto) 35048 H Sodium 144 Potassium 5.0 Chloride 100 Carbon Dioxide 29 BUN 16 Creatinine 0.90 Estimated GFR > 60.0 BUN/Creatinine Ratio 17.8 Glucose 176 H Hemoglobin A1c Lactate 2.1 Calcium 10.6 H Total Bilirubin 0.7 AST 39 H ALT 22 Alkaline Phosphatase 146 H Total Protein 8.9 H Albumin 4.9 Globulin 4.0 Albumin/Globulin Ratio 1.2 Lipase 99 Urine RBC Urine WBC Ur Squamous Epith Cells Urine Bacteria Ur Culture Indicated? Micro UA Comment 10/24/17 10/25/17 10/25/17 22:05 05:19 05:19 WBC 12.4 H RBC 4.64 Hgb 13.3 Hct 40.3 MCV 86.8 MCH 28.6 MCHC 33.0 RDW 14.9 H Plt Count 268 Neut % (Auto) 77.2 H Lymph % (Auto) 13.0 L [place] % (Auto) 9.5 Eos % (Auto) 0.0 L Baso % (Auto) 0.3 Neut # (Auto) 9600 H Sodium 144 Potassium 4.3 Chloride 110 H Carbon Dioxide 27 BUN 13 Creatinine 0.70 Estimated GFR > 60.0 BUN/Creatinine Ratio 18.6 Glucose 146 H Hemoglobin A1c Lactate Calcium 8.7 Total Bilirubin AST ALT Alkaline Phosphatase Total Protein Albumin Globulin Albumin/Globulin Ratio Lipase Urine RBC None seen Urine WBC 1-5/hpf Ur Squamous Epith Cells 1-5 /hpf Urine Bacteria Many (>30) H Ur Culture Indicated? Specimen cultured Micro UA Comment Not Reportable 10/25/17 05:19 WBC RBC Hgb Hct MCV MCH MCHC RDW Plt Count Neut % (Auto) Lymph % (Auto) [place] % (Auto) Eos % (Auto) Baso % (Auto) Neut # (Auto) Sodium Potassium Chloride Carbon Dioxide BUN Creatinine Estimated GFR BUN/Creatinine Ratio Glucose Hemoglobin A1c 6.1 H Lactate Calcium Total Bilirubin AST ALT Alkaline Phosphatase Total Protein Albumin Globulin Albumin/Globulin Ratio Lipase Urine RBC Urine WBC Ur Squamous Epith Cells Urine Bacteria Ur Culture Indicated? Micro UA Comment Assessment & Plan (1) Small bowel obstruction: Problem details: Fortunately, we need is having some bowel function. There is also some evidence of a possible urinary tract infection and the sample has been cultured. Her white count is elevated but better than it was at admission. From a surgical perspective, I think she will hopefully clear up without surgical intervention. I would recommend clamping her NG tube for 6 hr. We should then check the residual and if it is less than 50 mL remove the NG tube. Current visit: Yes Status: Acute
[2017-10-25] MEDS: ALBUTEROL 2.5 MG/3 ML NEB (ADULT) INH (09:15)
[2017-10-25] MEDS: TIOTROPIUM BROMIDE 18 MCG INHALER INH (09:16)
--- NOTE | 2017-10-25 10:54 | PM.PN.1 ---
Subjective Date Patient Seen: 10/25/17 Time Patient Seen: 10:54 Interval history: Patient is feeling improved. Less abdominal distension. No nausea. No abdominal pain. She reports she could hardly touch her abdomen because of discomfort yesterday and it is much better now. She currently has her NG tube clamped with no increasing symptoms although it has been a relatively short time. She is complaining of some urinary burning and discomfort consistent with UTI and fingers is probably which she has. Exam Vital Signs (past 8 hours): - 10/25/17 03:00 10/25/17 07:30 10/25/17 09:00 Temperature 98.2 F 97.3 F L Pulse Rate 82 94 H 90 Respiratory Rate 16 16 16 Blood Pressure 121/66 H 120/67 Pulse Oximetry 91 94 95 Oxygen Delivery Method Room Air Oxygen Flow Rate 0 Narrative Exam Narrative: Abdomen-bowel tones closer to normal versus yesterday, less distended, no tenderness, certainly no rebound or guarding Objective Labs Result Diagrams: 10/25/17 05:19 10/25/17 05:19 Labs: Laboratory Results - last 24 hr 10/24/17 10/25/17 10/25/17 22:05 05:19 05:19 WBC 12.4 H RBC 4.64 Hgb 13.3 Hct 40.3 MCV 86.8 MCH 28.6 MCHC 33.0 RDW 14.9 H Plt Count 268 Neut % (Auto) 77.2 H Lymph % (Auto) 13.0 L [place] % (Auto) 9.5 Eos % (Auto) 0.0 L Baso % (Auto) 0.3 Neut # (Auto) 9600 H Sodium 144 Potassium 4.3 Chloride 110 H Carbon Dioxide 27 BUN 13 Creatinine 0.70 Estimated GFR > 60.0 BUN/Creatinine Ratio 18.6 Glucose 146 H Hemoglobin A1c Calcium 8.7 Urine RBC None seen Urine WBC 1-5/hpf Ur Squamous Epith Cells 1-5 /hpf Urine Bacteria Many (>30) H Ur Culture Indicated? Specimen cultured Micro UA Comment Not Reportable 10/25/17 05:19 WBC RBC Hgb Hct MCV MCH MCHC RDW Plt Count Neut % (Auto) Lymph % (Auto) [place] % (Auto) Eos % (Auto) Baso % (Auto) Neut # (Auto) Sodium Potassium Chloride Carbon Dioxide BUN Creatinine Estimated GFR BUN/Creatinine Ratio Glucose Hemoglobin A1c 6.1 H Calcium Urine RBC Urine WBC Ur Squamous Epith Cells Urine Bacteria Ur Culture Indicated? Micro UA Comment Assessment & Plan Plan: Assessment/Plan Narrative: 1. Small bowel obstruction-appears to be improving spontaneously as expected/hoped. Was seen by surgery earlier this morning and has NG tube clamped. If able to tolerate several hours without significant residual will likely have the NG removed and perhaps restart gentle oral liquids etc. 2. Diabetes-blood sugars have been adequately controlled as expected 3. UTI-patient's UA was minimally abnormal with bacteria only. Awaiting culture results but will start her on some IV Levaquin given that she is still NPO, but is symptomatic. 4. Hypertension-patient appears to be stable. Hopefully we can resume usual medications Note: Greater than 30 minutes was spent evaluating the patient on the floor, including examining the patient, discussing clinical course with clinical and nursing staff, reviewing clinical course in the computer, preparing documentation and writing orders for continued management of care, discussing status with family as appropriate, reviewing plans for the next 24 hours with both patient/family and nursing staff as appropriate. Quality VTE Deep Vein Thrombosis/Pulmonary Embolism Present on Admission: No
[2017-10-25] MEDS: levoFLOXacin 250 MG/50 ML PIGGYBACK 50 MG IV (11:26)
--- NOTE | 2017-10-25 15:03 | PC.NURSE ---
day shift pt c/o pain in abd. using GROC[employer] STORE COURTESY CLERK to control pain. States pain is ~5/10 with GR[employer] STORE COURTESY CLERK, sleeping on and off throughout shift. BS controlled, no insulin given per protocol. NGT clamped this AM at 0945. pt denies nausea with clamping. Will check residual after 6 hrs per orders. started levofloxicin this shift per orders. urine is cloudy and foul smelling. hourly rounding provided, call light within reach.
--- NOTE | 2017-10-25 15:58 | CM.DANOTE ---
Discharge Planning/Care Management DCP: assessment: case received, EMR reviewed and met with pt. Introduced self and role. Pt is found lying in bed, NG to Suuction draining dark material. Pt is a 62 year old female who admitted yesterday to care of [facility] providers. (Dr. Peña has been her PCP: recently retired). Dr. Fung sees her today. Payer: Medicaid and [facility] P: POC is newly in process...will follow for d/c needs that may arise. If bowel obstruction resolves medically would anticipate pt will d/c home with family and clinic followup but too early to tell at this point. CM Discharge Assessment Start: 10/25/17 15:56 Freq: Status: Active Protocol: Document 10/25/17 15:56 ITV (Rec: 10/25/17 15:58 ITV [id number]) Discharge Planning Assessment History Provided By Patient Medical Record Has Patient been admitted in last 30 No days? Prior Living Arrangements House Household Members significant other Comment lives with partner Yehuda Zapien Independent with ADL's Yes Is patient alert and oriented? Yes DME Already Rented / Owned Elevated Toilet Seat FWW / Walker Comment has bedside commode Review Status In Process Next Review Type Continued Stay Review
[2017-10-25] MEDS: diphenhydrAMINE 50 MG/ML VIAL 25 MG IV ×2 (17:25→21:46)
--- NOTE | 2017-10-25 18:02 | PC.NURSE ---
NG tube ng tube assessed to be clamped. per order residual checked and was 45cc clear fluid. pt denies nausea. flatus +. NG tube DCd per order with tip in tact. pt tolerated procedure well. encouraged to notify RN if nausea occurs. provided with ordered ice chips and advised to use sparingly.
[2017-10-25] MEDS: LORazepam 2 MG/ML SYRINGE 1 MG IV (21:45)
[2017-10-26] VITALS (8 sets, daily range): BP systolic 114–144; BP diastolic 74–108; PULSE 72–103; RESP 16–20; TEMP 36.4–36.8; O2SAT 96–98
[2017-10-26] MEDS: HYDROMORPHONE PCA 6 MG/30 ML PCA.VIAL IV ×3 (06:22→20:58)
[2017-10-26] MEDS: TIOTROPIUM BROMIDE 18 MCG INHALER INH (08:40)
[2017-10-26] MEDS: DEXTROSE 5%-0.9% NS 1,000 ML 100 ML IV ×2 (09:55→20:57)
[2017-10-26] MEDS: ENOXAPARIN 40 MG/0.4 ML SYRINGE SUBCUT (09:55)
--- NOTE | 2017-10-26 10:37 | PM.PN.1 ---
Subjective Date Patient Seen: 10/26/17 Time Patient Seen: 10:37 Interval history: Patient had minimal residual from her NG tube after was clamped for 6 hr yesterday. Therefore it was discontinued. I okayed ice chips overnight. She says she has low bit of abdominal discomfort but absolutely no nausea it does not feel like the ice or anything is string upper stomach in any fashion She feels a bit tired today but no other complaints. Exam Vital Signs (past 8 hours): - 10/26/17 05:20 10/26/17 08:20 10/26/17 08:40 Temperature 98.1 F 98.3 F Pulse Rate 103 H 90 89 Respiratory Rate 18 16 16 Blood Pressure 114/81 H 131/75 H Pulse Oximetry 96 97 98 Oxygen Delivery Method Room Air Oxygen Flow Rate 0 Narrative Exam Narrative: Abdomen-nontender nondistended, rare bowel tones, essentially unchanged from yesterday Objective Labs Result Diagrams: 10/25/17 05:19 10/25/17 05:19 Assessment & Plan Plan: Assessment/Plan Narrative: 1. Small bowel obstruction-improving spontaneously as hoped. Will go slowly with clear liquids later today assuming there is no additional symptoms present. Will resume her oral medications which include her antihypertensives her gabapentin and her Ambien etc 2. Diabetes-blood sugar numbers well controlled as expected. Will likely become more of an issue as patient's diet is increase 3. UTI-growing Klebsiella from her urine. Should be sensitive to the levofloxacin per culture results 4. Hypertension-numbers appear to be stable. Again as above will resume patient's oral anti hypertensives Note: Greater than 30 minutes was spent evaluating the patient on the floor, including examining the patient, discussing clinical course with clinical and nursing staff, reviewing clinical course in the computer, preparing documentation and writing orders for continued management of care, discussing status with family as appropriate, reviewing plans for the next 24 hours with both patient/family and nursing staff as appropriate. Quality VTE Deep Vein Thrombosis/Pulmonary Embolism Present on Admission: No
[2017-10-26] MEDS: levoFLOXacin 250 MG/50 ML PIGGYBACK 50 MG IV (11:01)
[2017-10-26] MEDS: FUROSEMIDE 20 MG TABLET PO (11:02)
[2017-10-26] MEDS: ATENOLOL 50 MG TABLET PO (11:02)
[2017-10-26] MEDS: MELOXICAM 7.5 MG TABLET PO (11:02)
[2017-10-26] MEDS: MONTELUKAST 10 MG TABLET PO (11:02)
--- NOTE | 2017-10-26 14:00 | PM.PN.1 ---
Subjective Date Patient Seen: 10/26/17 Time Patient Seen: 14:00 Interval history: Hilary is in reasonable spirits today. She denies any nausea and denies any abdominal pain. She has been tolerating clear liquids without difficulty. Exam Vital Signs (past 8 hours): - 10/26/17 08:20 10/26/17 08:40 10/26/17 09:50 Temperature 98.3 F Pulse Rate 90 89 Respiratory Rate 16 16 Blood Pressure 131/75 H Pulse Oximetry 97 98 96 10/26/17 11:25 Temperature 98.1 F Pulse Rate 87 Respiratory Rate 16 Blood Pressure 144/108 H Pulse Oximetry 96 Oxygen Delivery Method Room Air Oxygen Flow Rate 0 Narrative Exam Narrative: Abdomen is soft, rotund, active bowel sounds. Mild global tenderness to palpation that is most pronounced over the incision areas. No peritoneal signs Objective Labs Result Diagrams: 10/25/17 05:19 10/25/17 05:19 Assessment & Plan Plan: Assessment/Plan Narrative: Small bowel obstruction has fortunately spontaneously resolved. Agree with all excellent care provided by Dr. Fung. Will be available if needed. Quality VTE Deep Vein Thrombosis/Pulmonary Embolism Present on Admission: No
[2017-10-26] MEDS: GABAPENTIN 600 MG TABLET PO ×2 (14:07→20:39)
[2017-10-26] MEDS: diphenhydrAMINE 50 MG/ML VIAL 25 MG IV (14:23)
[2017-10-26] MEDS: AMITRIPTYLINE 25 MG TABLET 50 MG PO (20:38)
[2017-10-26] MEDS: LORazepam 2 MG/ML SYRINGE 1 MG IV (20:51)
[2017-10-26] MEDS: ZOLPIDEM 5 MG TABLET PO (20:51)
[2017-10-27] VITALS (11 sets, daily range): BP systolic 103–137; BP diastolic 49–89; PULSE 76–116; RESP 16–18; TEMP 36.1–37.1; O2SAT 94–97
[2017-10-27] MEDS: HYDROMORPHONE PCA 6 MG/30 ML PCA.VIAL IV ×3 (05:50→21:46)
--- NOTE | 2017-10-27 08:31 | PM.PN.1 ---
Subjective Date Patient Seen: 10/27/17 Time Patient Seen: 08:31 Interval history: Patient asleep when I entered her room. After waking her up she reports she had a good day yesterday. No abdominal pain with any of the liquids. Exam Vital Signs (past 8 hours): - 10/27/17 04:10 Temperature 98.6 F Pulse Rate 81 Respiratory Rate 16 Blood Pressure 127/76 H Pulse Oximetry 95 Oxygen Delivery Method Room Air Oxygen Flow Rate 0 Narrative Exam Narrative: Rare but positive bowel tones, no rebound or guarding, similar to yesterday's exam Objective Labs Result Diagrams: 10/25/17 05:19 10/25/17 05:19 Assessment & Plan Plan: Assessment/Plan Narrative: 1. Small bowel obstruction-advance diet today. Hopefully will be okay to be discharged tomorrow assuming no issues with advance diet 2. Diabetes-blood sugar numbers very well controlled continue to monitor 3. UTI-continue with levofloxacin 4. Hypertension-continue current meds. Note: Greater than 30 minutes was spent evaluating the patient on the floor, including examining the patient, discussing clinical course with clinical and nursing staff, reviewing clinical course in the computer, preparing documentation and writing orders for continued management of care, discussing status with family as appropriate, reviewing plans for the next 24 hours with both patient/family and nursing staff as appropriate. Quality VTE Deep Vein Thrombosis/Pulmonary Embolism Present on Admission: No
[2017-10-27] MEDS: ENOXAPARIN 40 MG/0.4 ML SYRINGE SUBCUT (09:53)
[2017-10-27] MEDS: ATENOLOL 50 MG TABLET PO (09:54)
[2017-10-27] MEDS: GABAPENTIN 600 MG TABLET PO ×2 (09:54→20:34)
[2017-10-27] MEDS: MONTELUKAST 10 MG TABLET PO (09:54)
[2017-10-27] MEDS: MELOXICAM 7.5 MG TABLET PO (09:54)
[2017-10-27] MEDS: FUROSEMIDE 20 MG TABLET PO (09:54)
[2017-10-27] MEDS: TIOTROPIUM BROMIDE 18 MCG INHALER INH ×2 (10:00)
[2017-10-27] MEDS: levoFLOXacin 250 MG/50 ML PIGGYBACK 50 MG IV (11:44)
[2017-10-27] MEDS: INSULIN ASPART 100 UNIT/ML INSULN PEN SUBCUT (12:51)
[2017-10-27] MEDS: LORazepam 2 MG/ML SYRINGE 1 MG IV (20:33)
[2017-10-27] MEDS: AMITRIPTYLINE 25 MG TABLET 50 MG PO (20:34)
[2017-10-27] MEDS: ZOLPIDEM 5 MG TABLET PO (22:16)
--- NOTE | 2017-10-27 22:50 | PC.NURSE ---
Pt continues to deny nausea, tolerating full liquids. Up to BSC to have multiple large BM's, brown liquid mixed with soft stool. 97% RA, SOB at times with exertion. Pt calling appropriately and making needs known to staff.
[2017-10-28] VITALS (8 sets, daily range): BP systolic 111–143; BP diastolic 65–96; PULSE 80–104; RESP 16–22; TEMP 36.1–36.7; O2SAT 94–99
[2017-10-28] MEDS: HYDROMORPHONE PCA 6 MG/30 ML PCA.VIAL IV (05:54)
--- NOTE | 2017-10-28 08:06 | P.PN_ITS ---
Subjective Date Patient Seen: 10/28/17 Time Patient Seen: 08:04 Interval history: Patient sleeping when I enter the room. Easily awakens. Had a good day yesterday denied any nausea are change or abdominal symptoms with any of what she took in orally. Has not really been out of bed. Exam Vital Signs (past 8 hours): - 10/28/17 03:55 Temperature 97.5 F L Pulse Rate 104 H Respiratory Rate 16 Blood Pressure 129/73 H Pulse Oximetry 96 Oxygen Delivery Method Room Air Oxygen Flow Rate 0 Narrative Exam Narrative: Unchanged from previous Objective Labs Result Diagrams: 10/25/17 05:19 10/25/17 05:19 Assessment & Plan Plan: Assessment/Plan Narrative: 1. Small bowel obstruction-the patient appears to have cleared this. Will advance diet and if okay today can likely be discharged tomorrow 2. Diabetes-blood sugar numbers still adequately controlled. Continue monitor specially his diet is further advanced 3. UTI-we will switch levofloxacin from IV to oral given her oral intake 4. Hypertension-continue meds. Adequate control for now. Overall patient is improved. I would like to ensure she is safe to go home given several days she has been in the hospital now on barely out of bed. Also like to make sure her bowel function is really returned to normal so I think another 24 hr in the hospital with plans for discharge tomorrow makes the most sense. She did have quite a prolonged episode with her partial/complete small- bowel obstruction last year but fortunately this episode seems entirely different thus far. Note: Greater than 30 minutes was spent evaluating the patient on the floor, including examining the patient, discussing clinical course with clinical and nursing staff, reviewing clinical course in the computer, preparing documentation and writing orders for continued management of care, discussing status with family as appropriate, reviewing plans for the next 24 hours with both patient/family and nursing staff as appropriate. Quality VTE Deep Vein Thrombosis/Pulmonary Embolism Present on Admission: No
--- NOTE | 2017-10-28 08:57 | PT.IPTN ---
Current Diagnoses Unspecified intestinal obstruction, unspecified as to partial versus complete obstruction (10/24/17) Physical Therapy Treatment Note M3 PT-IP Subjective Start: 10/28/17 08:45 Freq: NEEDED Status: Active Protocol: Document 10/28/17 08:45 RS (Rec: 10/28/17 08:57 RS [id number]) Subjective Physical Therapy Visit Type Type Patient Refusal Notes Pt about to eat breakfast but declines to participate in therapy at this time, reports being too tired and not feeling well enough to participate at this time.
[2017-10-28] MEDS: INSULIN ASPART 100 UNIT/ML INSULN PEN SUBCUT ×2 (09:08→17:03)
[2017-10-28] MEDS: FUROSEMIDE 20 MG TABLET PO (09:11)
[2017-10-28] MEDS: MELOXICAM 7.5 MG TABLET PO (09:11)
[2017-10-28] MEDS: GABAPENTIN 600 MG TABLET PO ×2 (09:11→20:33)
[2017-10-28] MEDS: MONTELUKAST 10 MG TABLET PO (09:11)
[2017-10-28] MEDS: ATENOLOL 50 MG TABLET PO (09:15)
[2017-10-28] MEDS: ENOXAPARIN 40 MG/0.4 ML SYRINGE SUBCUT (09:15)
[2017-10-28] MEDS: levoFLOXacin 250 MG TABLET PO (09:16)
[2017-10-28] MEDS: TIOTROPIUM BROMIDE 18 MCG INHALER INH (10:55)
[2017-10-28] MEDS: OXYCODONE IR 5 MG TABLET PO ×3 (11:21→21:30)
[2017-10-28 11:53] LABS: Hematocrit 43.9 % (36-46); Hemoglobin 14.6 g/dL (12.0-16.0)
[2017-10-28 11:59] LABS: INR 1.3 (0.9-1.3)
[2017-10-28 12:02] LABS: PTT Partial Thromboplastin Tim 36 SECONDS (26.4-36.2)
[2017-10-28 12:03] LABS: Blood Urea Nitrogen 3 mg/dL (7-17); Calcium 9.3 mg/dL (8.4-10.2); Carbon Dioxide 31 mmol/L (22-32); Chloride 99 mmol/L (98-107); Estimated Glomerular Filt Rate > 60.0 mL/min (>60); Glucose 120 mg/dL (80-110); HEMOLYSIS < 15 (0-50); Potassium 3.7 mmol/L (3.4-5.1); Sodium 137 mmol/L (137-145)
--- NOTE | 2017-10-28 12:32 | PC.NURSE ---
Pt up to use the commode and voided about 500cc with a medium sized blood clot present. Pt states that she has some bleeding from her rectum in the past. Hilary states that when she had her last colonoscopy, told her that she had ulcers. This RN phoned and he did order and H&H that is wnl. Pt states that she also has a hx of hemrroids. Voided for a second time and only a small amount of blood present in her stool mixed with a semi formed bm and also loose. She denies any nausea or abdomen pain. DEVELOPMENT TRAINER d/cd per Dr. Fung and pt started on oxycodone 5mg. Iv taken out as catheter was kinked. She refuses another IV at this time. If needed will start another iv.
--- NOTE | 2017-10-28 13:04 | PT.IIE ---
Current Diagnoses Unspecified intestinal obstruction, unspecified as to partial versus complete obstruction (10/24/17) Surgical History (Last Reviewed 10/25/17 @ 09:05 by Nancy Cedillo MD) History of colonoscopy (Resolved ~2011) History of colonoscopy (Resolved ~2014) History of oophorectomy (Resolved ~2014) History of ventral hernia repair (Resolved ~2014) Medical History (Last Reviewed 10/25/17 @ 09:05 by Nancy Cedillo MD) Obesity (BMI 30-39.9) (Chronic) Type 2 diabetes mellitus (Chronic) COPD (chronic obstructive pulmonary disease) (Chronic) Chronic pain syndrome (Chronic 02/02/15) Essential hypertension (Chronic 02/16/15) Sjogrens syndrome (Chronic) Rectal bleeding (Inactive) Leg edema (Chronic) Fibromyalgia (Chronic) Insomnia (Chronic 11/25/14) Diverticulosis of colon (without mention of hemorrhage) (Chronic 12/18/10) Panlobular emphysema (Chronic 02/02/15) Chronic obstructive bronchitis (Chronic 02/16/15) Obstructive sleep apnea syndrome (Chronic 02/16/15) Tubular adenoma (Resolved ~2011) Physical Therapy Inpatient Evaluation/Re-Eval Physical Therapy Current Condition Current Condition Evaluation Date 10/28/17 Treatment Diagnosis weak and abdominal pain Onset Date a few days ago Subjective Physical Therapy Visit Type Type Initial Evaluation Visit Start Time 12:15 Visit Stop Time 12:52 Total Visit Minutes 37 Physical Therapy Visit Comments Patient Comments Pt reports being really tired and painful after being taken off the IV pain med. Therapy Pain Assessment Pain When Pain Assessed At Rest Pain Present Pain Present Pain Reported Location Abdomen Description Aching Cramping Tender Throbbing With Movement Pain Behaviors Guarding Wincing Pain Management Techniques Modification of Treatment Re-positioning Timing of Activity with Medications PT-Bed Mobility Assessment Rolling Level of Assist Independent Supine to Sit Supine to Sit Independent Sit to Supine Sit to Supine Independent Scooting Scooting to Edge of Bed Independent PT-Transfer Assessment Sit to and From Stand Sit to and from Stand Standby Assistance Equipment Transfer Assistive Device None Transfers Transfer Destination Bed Chair Transfer Technique Stand Step Pivot Transfer Ability Level of Assist Standby Assistance Comments Mobility Comments Pt is slow but stable on her feet without an AD for transfers. Gait Assessment Gait Gait Assistance Required: Standby Assistance Distance (Feet) (feet) 10 Assistive Devices Assistive Device None Gait Deviations General Gait Pattern Antalgic Decreased Stride Length Wide Based Gait Comments Gait Comments Pt declining to walk very far due to pain (pt attributes it to OA), but relatively stable for short distances without an AD. PT-Balance Assessment Sitting Balance and Reactions Static Sitting Balance Ability Normal Dynamic Sitting Balance Ability Normal Standing Balance and Reactions Static Standing Balance Ability Normal Dynamic Standing Balance Ability Good Device Used none Orientation Orientation/Cognition Level of Alertness Alert Orientation Name Age Birthday Month Date Year Day of Week Place Situation Language Function Ability No Deficits Noted Safety Awareness Understands Safety Issues Memory Description No Deficits Noted Gross Range of Motion Upper Extremity ROM Assessment Within Functional Limits Lower Extremity ROM Assessment Within Functional Limits Strength Comments Strength Comments not formally tested but strength in functionally intact. Coordination Assessment Gross Coordination Gross Coordination WNL Physical Therapy Treatment Education Education Provided Safety PT Summary Assessment and Plan Potential Rehabilitation Potential Good Status of Condition at Evaluation Evolving Summary Impairments Pain Gait Activity Tolerance Progress Towards Goals Progressing Toward Goals Assessment Summary Pt presents with overall feeling of fatigue and malaise which is negatively affecting pt's activity tolerance. Pt will be safe to discharge directly home once medically ready but will also benefit from ongoing skilled acute PT to increase strength and activity tolerance. Goals Bed Mobility Goal Independent Transfer Goal Independent Gait Goal Independent Gait Distance 150 Days to Meet Goals 2 Frequency of Treatment Frequency Of Treatment Once a Day Treatment Plan Physical Therapy Treatment Plan Gait Training Therapeutic Exercise Discharge Planning Recommendations To Nursing Amount of Assist Needed 1 Person Assist Discharge Recommendations PT Discharge Recommendations Home with Assistance Outpatient PT
[2017-10-28] MEDS: ALBUTEROL 2.5 MG/3 ML NEB (ADULT) INH (15:13)
--- NOTE | 2017-10-28 15:44 | CM.DPC ---
Met briefly with patient who was having RT interventions at the time of DCP visit. Verified that she is feeling much better, eating well, having stools, and her goal is to d/c to home when released. Likely no need for other services. Nursing states diet is being advanced and patient tolerating well. Plan; D/c to home. Yennifer Wallace RN
[2017-10-28] MEDS: AMITRIPTYLINE 25 MG TABLET 50 MG PO (20:32)
[2017-10-28] MEDS: ZOLPIDEM 5 MG TABLET PO (21:31)
[2017-10-29 00:05] VITALS: BP 117/78; PULSE 92; RESP 18; TEMP 36.6; O2SAT 97
[2017-10-29 00:48] VITALS: O2SAT 95
--- NOTE | 2017-10-29 00:58 | PC.NURSE ---
Pt is AxOx3, VSS, saturating well on room air. Fine Crackles noted throughout b/l lungs, expiratory wheezing as well, SOB/PABLO. Pt ambulatory with 1x assist. Found patient in family lounge getting coffee after receiving an Ambien during evening shift. Pt educated on fall risks and encouraged to not drink the coffee or to have decaf since she just took an Ambien and patient became agitated and dumped out the coffee. Pt stated she doesn't want the bed alarm on either. I asked pt if shes had any recent falls and she said she did on October 22. I spoke to the pt about fall risks and pt is reluctant to comply with hospital protocols. I turned on the bed alarm and told pt I would promptly go to her room if the call orozco rings as well as do hourly rounding. Pt denied pain. Stated she hasn't had a loose BM since this AM, +flatus.
[2017-10-29 05:24] VITALS: BP 108/60; PULSE 85; RESP 16; TEMP 36.4; O2SAT 96
[2017-10-29 06:16] LABS: Hematocrit 40.6 % (36-46); Hemoglobin 13.6 g/dL (12.0-16.0)
[2017-10-29 07:00] VITALS: O2SAT 95
[2017-10-29 08:00] VITALS: BP 131/75; PULSE 87; RESP 18; TEMP 36.4; O2SAT 94
[2017-10-29] MEDS: OXYCODONE IR 5 MG TABLET PO (08:04)
--- NOTE | 2017-10-29 08:19 | PM.DS.1 ---
History of Present Illness Date Patient Seen: 10/29/17 Time Patient Seen: 08:19 Chief complaint: SICK ALL NIGHT Narrative: Patient presented to the [facility] Emergency Department with persistent emesis and abdominal pain. Has longstanding history prior small bowel obstructions which presented very much like this. In the ER she was found to have recurrent bowel obstruction and is admitted for same Patient was feeling fine earlier in the week specifically on the 22 of October all was well. However early in the morning of the 24 of October began to have the emesis with the abdominal pain and eventually presenting to the hospital as above. Discharge Providers Date of admission: 10/24/17 11:48 Primary care physician: Magi Islas D.O. Consults: Dr. Tanika Cedillo, General Surgery Discharge provider: Yehuda Fung MD Discharge Date: 10/29/17 Summary Discharge Diagnosis: 1. Small bowel obstruction, resolved upon discharge 2. Urinary tract infection with Klebsiella pneumonia 3. Type 2 diabetes, well controlled 4. Asthma, minor exacerbation on day of discharge 5. Obesity 6. Rectal bleeding, previously established to be non serious and probably hemorrhoidal based on colonoscopy September 2017 Hospital Course: Patient was admitted to the hospital floor. She was kept NPO with IV fluids. She had some improvement in overall symptoms began to pass flatus and eventually had bowel movements. She was started on liquid diet then advance to a low residue diet without evidence of any further GI symptoms. Therefore she was felt to have resolved her bowel obstruction without need for any other particular intervention. General surgery was consulted upon admission and followed patient till she began to re-feed successfully at which point they signed off the case. Patient did have some rectal bleeding on the day prior to discharge but this is been previously evaluated and thought to be hemorrhoidal in nature based on colonoscopy performed in September of 2017 Patient's diabetes was well controlled during this hospitalization. She did have some urinary tract symptoms and Klebsiella was grown from her urine and so she was treated with a 7 day course of levofloxacin which is appropriate based on sensitivities Patient had a mild chest congestion consistent with asthma exacerbation for which usually takes 3 or 4 days of prednisone which was started on day of discharge as well Overall patient was much improved upon discharge Status at Discharge Cognitive/behavioral status at discharge: Normal Functional status at discharge: independent ambulation Overall status at discharge: patient is back to baseline Time Spent with Patient Less than 30 minutes Exam Vital Signs (past 8 hours): - 10/29/17 00:48 10/29/17 05:24 Temperature 97.6 F Pulse Rate 85 Respiratory Rate 16 Blood Pressure 108/60 Pulse Oximetry 95 96 Oxygen Delivery Method Room Air Oxygen Flow Rate 0 Narrative Exam Narrative: HEENT-unremarkable, normocephalic atraumatic Neck-no lymphadenopathy no bruits Lungs-clear anteriorly and posteriorly minimal wheezes no crackles good breath sounds, with some of her breath efforts there was some end-expiratory wheezing Heart-regular rate and rhythm no murmur rub or gallop normal S1-S2 Abdomen-positive bowel tones soft nontender nondistended no hepatosplenomegaly no masses palpable Neuro-normal to screening exam, gait not tested Extremities-no cyanosis clubbing or edema Objective Labs Result Diagrams: 10/29/17 05:44 10/28/17 11:40 Labs: Laboratory Results - last 24 hr 10/28/17 10/28/17 10/28/17 11:40 11:40 11:40 Hgb 14.6 Hct 43.9 PT 14.0 H INR 1.3 APTT 36 Sodium 137 Potassium 3.7 Chloride 99 Carbon Dioxide 31 BUN 3 L Creatinine 0.60 Estimated GFR > 60.0 BUN/Creatinine Ratio 5.0 L Glucose 120 H Calcium 9.3 10/29/17 05:44 Hgb 13.6 Hct 40.6 PT INR APTT Sodium Potassium Chloride Carbon Dioxide BUN Creatinine Estimated GFR BUN/Creatinine Ratio Glucose Calcium Discharge Plan Discharge Plan Patient Disposition: Home Health Service Provider Discharge Instructions Diet: Diet as Tolerated Discharge Data Primary Care Provider: Kevan Peña Attending Provider: Yehuda Fung Admit Date/Time: 10/24/17 11:48 Quality VTE Deep Vein Thrombosis/Pulmonary Embolism Present on Admission: No
[2017-10-29] MEDS: ENOXAPARIN 40 MG/0.4 ML SYRINGE SUBCUT (08:58)
[2017-10-29] MEDS: MELOXICAM 7.5 MG TABLET PO (08:59)
[2017-10-29] MEDS: ATENOLOL 50 MG TABLET PO (08:59)
[2017-10-29] MEDS: levoFLOXacin 250 MG TABLET PO (08:59)
[2017-10-29] MEDS: FUROSEMIDE 20 MG TABLET PO (08:59)
[2017-10-29] MEDS: predniSONE 20 MG TABLET 40 MG PO (08:59)
[2017-10-29] MEDS: MONTELUKAST 10 MG TABLET PO (08:59)
[2017-10-29] MEDS: GABAPENTIN 600 MG TABLET PO (08:59)
[2017-10-29] MEDS: TIOTROPIUM BROMIDE 18 MCG INHALER INH (09:21)
[2017-10-29] MEDS: ALBUTEROL 2.5 MG/3 ML NEB (ADULT) INH (09:21)
[2017-10-29 09:51] VITALS: PULSE 97; RESP 18; O2SAT 98
--- NOTE | 2017-10-29 10:23 | PC.NURSE ---
Pt will be discharging today at 11am. Given 5mg of percolone this am and helpful for back discomfort. Up in room independently and steady on her feet this morning.
== END 2017-10-29 11:30 | disposition home or self-care (01) | DRG 389 ==
LOC: ED 11:28 → AC 11:48
PROVIDERS: Admitting Provider Internal Medicine; Emergency Provider Emergency Medicine; Family Provider Family Medicine; PCP Family Medicine; Visit Provider Internal Medicine
DX: K56.609 Unspecified intestinal obstruction, unspecified as to partial versus complete obstruction (principal); N39.0 Urinary tract infection, site not specified; J45.901 Unspecified asthma with (acute) exacerbation; J44.9 Chronic obstructive pulmonary disease, unspecified; I10 Essential (primary) hypertension; M79.7 Fibromyalgia; E66.9 Obesity, unspecified; Z68.36 Body mass index [BMI] 36.0-36.9, adult; G47.33 Obstructive sleep apnea (adult) (pediatric); Z87.891 Personal history of nicotine dependence; B96.1 Klebsiella pneumoniae [K. pneumoniae] as the cause of diseases classified elsewhere; K64.9 Unspecified hemorrhoids; D64.9 Anemia, unspecified; G47.00 Insomnia, unspecified; M35.00 Sjogren syndrome, unspecified; E11.9 Type 2 diabetes mellitus without complications
CPT/HCPCS: 36415; 36591; 36592; 43753; 74177; 80048; 80053; 81003; 81015; 82962; 83036; 83605; 83690; 85014; 85018; 85025; 85610; 85730; 87077; 87086; 87186; 94640; 94760; 97161; 99223; 99232; 99233; 99238; 99283; J1170; J1200; J1650; J2060; J2405; J2930; J7613

== ENCOUNTER → 2017-11-12 13:37 | Outpatient (CLI) | payer MEDICAID, OTHER, SELFPAY ==
[2017-10-24 14:51] VITALS: BMI 35.3
[2017-11-12 14:32] LABS: Add Manual Diff / Slide Review NO; Basophils Percent Auto 1.1 % (0-2); Eosinophils Percent Auto 3.1 % (2-4); Hematocrit 41.9 % (36-46); Hemoglobin 13.8 g/dL (12.0-16.0); Lymphocytes Percent Auto 21.3 % (25-40); Mean Corpuscular HGB Conc 32.9 % (30-36); Mean Corpuscular Hemoglobin 28.7 PG (26-34); Mean Corpuscular Volume 87.2 fL (80-100); Monocytes Percent Auto 10.3 % (3-14); Neutrophils Absolute Auto 7600 /uL (3000-5900); Neutrophils Percent Auto 64.2 % (50-75); Platelet Count 294 X10^3/uL (150-400); Red Cell Distribution Width 15.2 % (11.6-14.8); White Blood Cell Count 11.8 X10^3/uL (4.5-11.0)
== END ==
PROVIDERS: PCP Family Medicine; Visit Provider Family Medicine
DX: K62.5 Hemorrhage of anus and rectum (principal)
CPT/HCPCS: 36415; 85025

== ENCOUNTER → 2017-12-05 09:11 | Outpatient (CLI) | payer MEDICAID, OTHER, SELFPAY ==
[2017-10-24 14:51] VITALS: BMI 35.3
[2017-12-05 10:49] LABS: Bacteria Urine None Seen; RBC Urine None Seen (0-5/HPF); WBC Urine None Seen (0-5/HPF)
[2017-12-05 11:13] LABS: Amorphous Sediment Urine 2+; Culture Indicated Urine Cult Not Indicated; Squamous Epithelial Cell Urine 10-30 /HPF
[2017-12-05 11:15] LABS: Appearance Urine UA CLEAR; Bilirubin Urine UA NEGATIVE (NEGATIVE); Color Urine UA YELLOW; Glucose Urine UA NEGATIVE (Normal); Ketones Urine UA NEGATIVE (NEGATIVE); Leukocyte Esterase Urine UA NEGATIVE (NEGATIVE); Nitrite Urine UA POSITIVE (Negative); Occult Blood Urine UA NEGATIVE (Negative); Protein Urine UA NEGATIVE (Negative); Specific Gravity Urine UA 1.015 (1.000-1.035); Urobilinogen Urine UA 0.2 E.U./dL (0.2)
== END ==
PROVIDERS: Family Provider Family Medicine; PCP Family Medicine; Visit Provider Family Medicine
DX: R30.0 Dysuria (principal)
CPT/HCPCS: 81001

== ENCOUNTER → 2018-01-06 09:40 | Outpatient (CLI) | payer MEDICAID, OTHER, SELFPAY ==
[2017-10-24 14:51] VITALS: BMI 35.3
[2018-01-06 10:30] LABS: Appearance Urine UA SL CLOUDY; Bilirubin Urine UA NEGATIVE (NEGATIVE); Color Urine UA YELLOW; Glucose Urine UA NEGATIVE (Normal); Ketones Urine UA NEGATIVE (NEGATIVE); Leukocyte Esterase Urine UA NEGATIVE (NEGATIVE); Nitrite Urine UA Negative (Negative); Occult Blood Urine UA NEGATIVE (Negative); Protein Urine UA NEGATIVE (Negative); Urobilinogen Urine UA 0.2 E.U./dL (0.2); pH Urine UA 5.5 (4.5-8.0)
[2018-01-06 10:30] LABS: Add Manual Diff / Slide Review NO; Basophils Percent Auto 1.3 % (0-2); Eosinophils Percent Auto 7.4 % (2-4); Hematocrit 39.8 % (36-46); Hemoglobin 13.3 g/dL (12.0-16.0); Lymphocytes Percent Auto 34.5 % (25-40); Mean Corpuscular HGB Conc 33.3 % (30-36); Mean Corpuscular Hemoglobin 28.8 PG (26-34); Mean Corpuscular Volume 86.7 fL (80-100); Monocytes Percent Auto 9.9 % (3-14); Neutrophils Absolute Auto 3700 /uL (3000-5900); Neutrophils Percent Auto 46.9 % (50-75); Platelet Count 299 X10^3/uL (150-400); Red Cell Distribution Width 14.7 % (11.6-14.8); White Blood Cell Count 7.9 X10^3/uL (4.5-11.0)
[2018-01-06 10:42] LABS: Alanine Aminotransferase 20 IU/L (9-52); Albumin 3.6 g/dL (3.5-5.0); Albumin Globulin Ratio 1.2 (1.0-2.8); Alkaline Phosphatase 78 U/L (38-126); Aspartate Aminotransferase 29 IU/L (14-36); BUN Creatinine Ratio 13.8 (6-22); Bilirubin Total 0.4 mg/dL (0.2-1.3); Blood Urea Nitrogen 11 mg/dL (7-17); Calcium 9.3 mg/dL (8.4-10.2); Carbon Dioxide 27 mmol/L (22-32); Chloride 102 mmol/L (98-107); Estimated Glomerular Filt Rate > 60.0 mL/min (>60); Globulin 2.9 g/dL (1.7-4.1); Glucose 115 mg/dL (80-110); HEMOLYSIS < 15 (0-50); Sodium 140 mmol/L (137-145); Total Protein 6.5 g/dL (6.3-8.2)
== END ==
PROVIDERS: PCP Family Medicine; Visit Provider Nurse Practitioner Family
DX: K59.03 Drug induced constipation (principal); T40.2X5A Adverse effect of other opioids, initial encounter; R30.0 Dysuria
CPT/HCPCS: 36415; 74018; 80053; 81003; 85025

== ENCOUNTER → 2018-01-06 10:11 | Outpatient (CLI) | payer MEDICAID, OTHER, SELFPAY ==
[2017-10-24 14:51] VITALS: BMI 35.3
--- NOTE | 2018-01-06 09:43 | DI.RAD.S_ITS ---
PROCEDURE: XR KUB INDICATIONS: LLQ abdominal pain with constipation TECHNIQUE: One view of the abdomen acquired. COMPARISON: [facility], CT, CT ABDOMEN PELVIS W CON, 10/24/2017, 10:16. [facility], CR, XR KUB, 08/21/2017, 10:02. [facility], CR, KUB XRAY (1 VIEW ABDOMEN), 07/04/2017, 11:17. [facility], CR, KUB XRAY (1 VIEW ABDOMEN), 06/24/2016, 13:48. FINDINGS: Surgical changes and devices: Several surgical clips are seen over the left midabdomen, there is no new surgical change identified. An enteric staple line is seen at the left lower abdomen, also previously present.. Bowel: Bowel gas pattern is mildly abnormal with mild right colonic obstipation.. Soft tissues: No suspicious abdominal calcifications. Visualized solid organ contours appear normal in size. Bones: No suspicious bony lesions. IMPRESSION: Mild right colonic obstipation, postsurgical changes with surgical clips and a enteric staple line on the left within the mid and lower abdomen. No intestinal obstruction or perforation is suspected. Dictated by: Dean Rivera M.D. on 01/06/2018 at 10:35 Approved by: Dean Rivera M.D. on 01/06/2018 at 10:38
== END ==
PROVIDERS: PCP Family Medicine; Visit Provider Nurse Practitioner Family
DX: K59.03 Drug induced constipation (principal); R10.32 Left lower quadrant pain
CPT/HCPCS: 74018

== ENCOUNTER → 2018-03-23 13:07 | Outpatient (CLI) | payer MEDICAID, OTHER, SELFPAY ==
[2017-10-24 14:51] VITALS: BMI 35.3
--- NOTE | 2018-03-23 13:12 | DI.RAD.S_ITS ---
PROCEDURE: XR CHEST 2V INDICATIONS: shortness of breath and cough,pneumonia? TECHNIQUE: 2 views of the chest were acquired. COMPARISON: [facility], , CHEST 2 VIEW, 05/27/2017, 13:04. FINDINGS: Surgical changes and devices: None. Lungs and pleura: No pleural effusions or pneumothorax. Increased interstitial lung reticular markings are seen. No definite focal infiltrate. Mediastinum: Mediastinal contours are normal. Heart size is enlarged. Bones and chest wall: No suspicious bony abnormalities. Soft tissues appear unremarkable. IMPRESSION: No acute cardiopulmonary pathology. Chronic increased interstitial lung markings suggestive of lung parenchymal disease. No focal infiltrate. Dictated by: Jad Rodriguez M.D. on 03/23/2018 14:13 Approved by: Jad Rodriguez M.D. on 03/23/2018 at 14:15
[2018-03-23 15:06] LABS: Add Manual Diff / Slide Review NO; Eosinophils Percent Auto 11.9 % (2-4); Hematocrit 40.3 % (36-46); Hemoglobin 13.4 g/dL (12.0-16.0); Lymphocytes Percent Auto 25.7 % (25-40); Mean Corpuscular HGB Conc 33.3 % (30-36); Mean Corpuscular Hemoglobin 29.2 PG (26-34); Mean Corpuscular Volume 87.7 fL (80-100); Neutrophils Absolute Auto 4900 /uL (3000-5900); Neutrophils Percent Auto 48.4 % (50-75); Platelet Count 214 X10^3/uL (150-400); Red Cell Distribution Width 14.8 % (11.6-14.8); White Blood Cell Count 10.2 X10^3/uL (4.5-11.0)
[2018-03-23 15:33] LABS: Blood Urea Nitrogen 9 mg/dL (7-17); Calcium 8.8 mg/dL (8.4-10.2); Carbon Dioxide 26 mmol/L (22-32); Chloride 98 mmol/L (98-107); Estimated Glomerular Filt Rate > 60.0 mL/min (>60); Glucose 109 mg/dL (80-110); HEMOLYSIS < 15 (0-50); Potassium 4.3 mmol/L (3.4-5.1); Sodium 136 mmol/L (137-145)
== END ==
PROVIDERS: PCP Family Medicine; Visit Provider Family Medicine
DX: R05 Cough (principal); R06.02 Shortness of breath; J18.9 Pneumonia, unspecified organism; J43.1 Panlobular emphysema; J44.1 Chronic obstructive pulmonary disease with (acute) exacerbation; J44.9 Chronic obstructive pulmonary disease, unspecified
CPT/HCPCS: 36415; 71046; 80048; 85025

== ENCOUNTER 2018-04-30 07:24 | Emergency (ER) | payer MEDICAID, OTHER, SELFPAY ==
[2017-10-24 14:51] VITALS: BMI 35.3
[2018-04-30] VITALS (14 sets, daily range): BP systolic 102–184; BP diastolic 71–134; PULSE 53–113; RESP 15–24; TEMP 36.3; O2SAT 99–100; BMI 37.2
--- NOTE | 2018-04-30 | DI.RAD.S_ITS ---
PROCEDURE: XR CHEST 1V INDICATIONS: ET TUBE PLACEMENT TECHNIQUE: One view of the chest was acquired. COMPARISON: [facility], CR, XR CHEST 2V, 03/23/2018, 13:53. FINDINGS: Surgical changes and devices: ET tube tip is approximately 2 cm above the fermin. Lungs and pleura: Pulmonary vascular congestion is seen. Mild pulmonary edema is also noted. Cannot rule out small underlying patchy infiltrates. Mediastinum: Mediastinal contours appear normal. Heart size is enlarged. Bones and chest wall: No suspicious bony lesions. Overlying soft tissues appear unremarkable. IMPRESSION: ET tube appears in satisfactory position. CHF changes, cannot rule out underlying small patchy infiltrates. Dictated by: Jad Rodriguez M.D. on 04/30/2018 at 8:17 Approved by: Jad Rodriguez M.D. on 04/30/2018 at 8:18
[2018-04-30 07:35] LABS: Add Manual Diff / Slide Review NO; Basophils Percent Auto 1.2 % (0-2); Eosinophils Percent Auto 6.6 % (2-4); Hematocrit 42.2 % (36-46); Hemoglobin 13.8 g/dL (12.0-16.0); Lymphocytes Percent Auto 43.3 % (25-40); Mean Corpuscular HGB Conc 32.7 % (30-36); Mean Corpuscular Hemoglobin 28.4 PG (26-34); Mean Corpuscular Volume 86.9 fL (80-100); Monocytes Percent Auto 8.3 % (3-14); Neutrophils Absolute Auto 5300 /uL (1500-7000); Neutrophils Percent Auto 40.6 % (50-75); Platelet Count 326 X10^3/uL (150-400); Red Blood Cell Count 4.86 X10^6/uL (4.0-5.2); Red Cell Distribution Width 15.3 % (11.6-14.8); White Blood Cell Count 13.1 X10^3/uL (4.5-11.0)
--- NOTE | 2018-04-30 07:36 | DI.CT.S_ITS ---
PROCEDURE: CT HEAD/BRAIN WO CON INDICATIONS: cva, hemiparesis left started 630am today TECHNIQUE: Noncontrast 4.5 mm thick angled axial sections acquired from the foramen magnum to the vertex, with coronal and sagittal reformats. For radiation dose reduction, the following was used: automated exposure control, adjustment of mA and/or kV according to patient size. COMPARISON: [facility], CT, HEAD WITHOUT CONTRAST, 06/20/2014, 22:20. FINDINGS: Image quality: Excellent. CSF spaces: Basal cisterns are patent. No extra-axial fluid collections. The ventricles are symmetric in size and shape. Brain: There is a large acute intraparenchymal hematoma in the right frontal lobe measuring 8.5 x 4.1 x 4.5 cm. In addition, there is significant subarachnoid hemorrhage involving the basal cisterns, along the right cerebral sulci, right tentorium and within the right sylvian fissure, as well as the interhemispheric fissure. There is significant mass effect with effacement of cerebral sulci in the right hemisphere with effacement of right lateral ventricle. There is a 13 mm leftward midline shift. There is cerebral volume loss for age, with resultant ventricular and sulcal prominence. There are periventricular and deep white matter chronic small vessel ischemic changes. There is intracranial internal carotid artery atherosclerosis. Skull and face: Calvarium and visualized facial bones appear intact, without suspicious lesions. Sinuses: Visualized sinuses and mastoids are clear. IMPRESSION: 1. A large acute intraparenchymal hematoma in the right frontal lobe measuring 8.5 x 4.1 x 4.5 cm causing effacement of cerebral sulci of the right hemisphere and the right lateral ventricle with 13 mm leftward midline shift as well as subfalcine herniation. There is crowding and possible compression of brainstem. 2. There is also acute subarachnoid hemorrhage with clot within the basal cisterns, along the right cerebral sulci, right tentorium and within the right sylvian fissure, as well as the interhemispheric fissure. The preliminary result was communicated to Dr. Blanchard by Dr. Keller from the [facility] on 04/30/2018 at 7:40 hours. No significant discrepancy with the third shift lieutenant radiology preliminary report. Dictated by: Michi Isabel M.D. on 04/30/2018 at 8:01 Approved by: Michi Isabel M.D. on 04/30/2018 at 8:14
[2018-04-30 07:41] LABS: Prothrombin Time 11.7 SECONDS (10.1-12.7)
[2018-04-30 07:43] LABS: PTT Partial Thromboplastin Tim 19 SECONDS (26.4-36.2)
[2018-04-30 07:45] LABS: BUN Creatinine Ratio 16.3 (6-22); Blood Urea Nitrogen 13 mg/dL (7-17); Calcium 8.7 mg/dL (8.4-10.2); Carbon Dioxide 23 mmol/L (22-32); Chloride 104 mmol/L (98-107); Estimated Glomerular Filt Rate > 60.0 mL/min (>60); Glucose 156 mg/dL (80-110); HEMOLYSIS 55 (0-50); Sodium 139 mmol/L (137-145)
[2018-04-30] MEDS: SUCCINYLCHOLINE 200 MG/10 ML VIAL 150 MG IV (07:45)
[2018-04-30] MEDS: ETOMIDATE 2 MG/ML VIAL 10 MG IV (07:45)
[2018-04-30 07:46] LABS: Potassium 4.1 mmol/L (3.4-5.1)
--- NOTE | 2018-04-30 07:55 | ED.AMS ---
HPI - Altered Mental Status General Chief Complaint: Neuro Symptoms/Deficit Stated Complaint: Stroke Time Seen by Provider: 04/30/18 07:26 Source: family () Mode of arrival: EMS Limitations: altered mental status History of Present Illness HPI narrative: This is a 63-year-old female who comes to the emergency department with complaint of altered mental status. states that was awake she was sitting on the edge of the bed complaining of a headache, he helped her to the bathroom she did walk under her own power but he states her speech was slurred. He sat her on the toilet and then she sort of slumped backwards and became fairly unresponsive. EMS states that she is not using her left side at all. Patient has not been speaking since then. She is not on any blood thinners per EMS or the medications brought with her today. does not believe she is on any aspirin or other blood thinners. Patient does have a history of diabetes type 2, hypertension, COPD and obstructive sleep apnea Related Data Home Medications Medication Instructions Recorded Confirmed docusate sodium 300 mg PO HS #0 07/27/17 04/29/18 albuterol sulfate 1.25 mg INHALATION BID 10/06/17 04/29/18 furosemide 20 mg PO PRN PRN 10/06/17 04/29/18 bisacodyl 5 mg tablet,delayed 5 mg PO BEDTIME 10/16/17 04/29/18 release ipratropium-albuterol 1 dose INHALATION QID PRN 10/24/17 04/29/18 albuterol sulfate [ProAir HFA] 2 puff INHALATION Q4-6H PRN 04/30/18 04/30/18 amitriptyline 50 mg PO BEDTIME 04/30/18 04/30/18 atenolol 50 mg PO DAILY 04/30/18 04/30/18 beclomethasone dipropionate [Qvar 1 puff INHALATION BID 04/30/18 04/30/18 RediHaler] diphenhydramine HCl [Benadryl 25 mg PO Q6HP PRN 04/30/18 04/30/18 Allergy] meloxicam [Mobic] 7.5 mg PO DAILY 04/30/18 04/30/18 prednisone 40 mg PO DAILYX5 04/30/18 04/30/18 Previous Rx's Medication Instructions Recorded hydrocortisone acetate 25 mg 25 mg AR QD-BID PRN #12 each 11/10/17 rectal suppository tiotropium bromide 18 mcg capsule 1 cap INHALATION DAILY #30 12/02/17 with inhalation device inhalation montelukast 10 mg tablet 10 mg PO QDAY #30 tab 03/17/18 benzonatate 100 mg capsule 100 mg PO TID PRN #30 cap 03/23/18 oxycodone 5 mg tablet 5 mg PO Q4H PRN #168 tab 03/26/18 tramadol 50 mg tablet 50 mg PO Q6HP PRN #120 tab 03/26/18 zolpidem 5 mg tablet 5 mg PO BEDTIME PRN #30 tab 03/26/18 fluconazole 150 mg tablet 150 mg PO ONCE #2 tab 03/27/18 gabapentin 600 mg tablet 600 mg PO BID #60 tab 03/30/18 Allergies Allergy/AdvReac Type Severity Reaction Status Date / Time barley [BARLEY] Allergy Severe reports Verified 04/30/18 07:45 sneezing and everything closes up iodine [IODINE] Allergy Mild BLISTER Verified 04/30/18 07:45 Review of Systems Review of Systems ROS Unobtainable: Unobtainable due to mental status/LOC Exam Narrative Exam Narrative: GEN: Morbidly obese female, patient is able to squeeze my fingers when asked 2, she is not able to speak or interact with me in any other way, patient appears to be in severe distress. HEENT: Atraumatic, patient has a right lateral gaze deviation, pupils are equal reactive to light 5 mm bilaterally nares are clear, TMs are clear with no fluid, there is no conjunctival pallor. Throat is clear without any exudates, erythema, tonsillar enlargement or uvular deviation HEART: Regular rate and rhythm without murmur, clicks, rubs. LUNGS:Lungs clear to auscultation, no wheezes, rales, crackles, chest moves symmetrically ABD:bowel sounds normal, soft, non-tender, no guarding, rebound, rigidity, no masses noted, no hepatosplenomegaly :No CVA tenderness MSCL: Non-tender, no muscle atrophy, patient has good squeeze and motion of her right upper extremity, she does localize on the left to pain but does not have squeeze or follow commands. Patient has some mild movement of her right lower extremity none of the left lower extremity. NEURO:CN 2-12 intact, sensation normal. Initial Vital Signs Initial Vital Signs: Vital Signs Temperature 97.3 F L 04/30/18 07:33 Pulse Rate 66 04/30/18 07:33 Respiratory Rate 20 04/30/18 07:33 Blood Pressure 152/108 H 04/30/18 07:33 Pulse Oximetry 100 04/30/18 07:33 Procedures Intubation Time out performed: Yes sedative: Etomidate Mg Given: 10 paralytic: Succinylcholine Mg Given: 150 Laryngoscope: fiber optic video scope ET Tube Size: 7.5 ET Tube Uncuffed: Yes Tube Secured Depth (cm): 23 Tube Secured Location: teeth Tube Placement Confirmation: Visualized tube passing through cords, Equal breath sounds bilaterally, No breath sounds over epigastrium, Confirmation by capnometry and Chest Xray Patient Tolerated Procedure: Well Intubation Complications: difficult intubation (See below) Additional Comments: Patient appeared to have her ET tube through the cords initially she had good color change on capnography but oxygen continued to drop into the 60s and then 50s. ET tube was removed, patient was repositioned oxygen improved into the 90s almost immediately, intubation was re-attempted and patient ETT appear to go through the cords, she had good color change on capnography, oxygen continued to maintain in the 90s and 100 range. Chest x-ray shows ET tube in appropriate placement. Scores GCS [place] coma scale eye opening: None Taya coma scale verbal response: None [place] coma scale motor response: Obey commands Taya coma scale total score: 8 Course Orders Ordered: Discontinued Medications Etomidate (Amidate) 10 mg IV NOW ONE Stop: 04/30/18 07:46 Last Admin: 04/30/18 07:45 Dose: 10 mg Etomidate (Amidate) 40 mg IV NOW ONE Stop: 04/30/18 08:03 Last Admin: 04/30/18 08:02 Dose: 40 mg Sodium Chloride (Normal Saline 0.9%) 1,000 mls @ 150 mls/hr IV CONT GUIDO Last Infusion: 04/30/18 09:19 Dose: 150 mls/hr Admin: 04/30/18 08:06 Dose: 150 mls/hr Mannitol (Osmitrol) 50 gm in 250 mls @ 500 mls/hr IV NOW ONE Stop: 04/30/18 08:44 Last Infusion: 04/30/18 08:38 Dose: 0 mls/hr Admin: 04/30/18 08:01 Dose: 500 mls/hr Nicardipine HCl 25 mg/ Sodium (Chloride) 250 mls @ 25 mls/hr IV TITRATE PRN; Protocol PRN Reason: HYPERTENSION Last Titration: 04/30/18 09:20 Dose: 5 mls/hr, 5 mls/hr Admin: 04/30/18 08:46 Dose: 5 mls/hr, 5 mls/hr Fentanyl 1,000 mcg/ Dextrose 270 mls @ 15.8 mls/hr IV TITRATE GUIDO; Protocol Last Titration: 04/30/18 09:20 Dose: 0.69 mcg/kg/hr, 15.8 mls/hr Admin: 04/30/18 08:49 Dose: 0.7 mcg/kg/hr, 15.8 mls/hr Midazolam HCl (Versed) 2 mg IV NOW ONE Stop: 04/30/18 08:23 Last Admin: 04/30/18 08:44 Dose: 2 mg Propofol (Diprivan) 40 mg 0.5 mg/kg (40 mg) IV NOW ONE Stop: 04/30/18 08:01 Last Admin: 04/30/18 09:36 Dose: 40 mg Propofol (Diprivan) 60 mg IV NOW ONE Stop: 04/30/18 08:21 Last Admin: 04/30/18 09:37 Dose: 60 mg Succinylcholine Chloride (Quelicin) 150 mg IV PROTOCOL ONE Stop: 04/30/18 07:46 Last Admin: 04/30/18 07:45 Dose: 150 mg Vital Signs - 8 hr 04/30/18 07:33 04/30/18 07:42 04/30/18 08:05 Temperature 97.3 F L Pulse Rate 66 66 107 H Respiratory Rate 20 24 Blood Pressure 152/108 H Blood Pressure [Left Arm] 184/94 H 144/98 H Pulse Oximetry 100 100 100 04/30/18 08:08 04/30/18 08:10 04/30/18 08:24 Temperature Pulse Rate 110 H 113 H 108 H Respiratory Rate 16 16 18 Blood Pressure Blood Pressure [Left Arm] 119/85 119/85 105/73 Pulse Oximetry 100 100 99 04/30/18 08:27 01/10/19 08:48 Temperature Pulse Rate 107 H 53 L Respiratory Rate 18 18 Blood Pressure Blood Pressure [Left Arm] 102/71 154/95 H Pulse Oximetry 100 100 MDM - Altered Mental Status Lab Data Attestation: I reviewed the patient's lab results. Result diagrams: 04/30/18 07:20 04/30/18 07:20 Lab Results 04/30/18 04/30/18 04/30/18 Range/Units 07:20 07:20 07:20 WBC 13.1 H (4.5-11.0) X10^3/uL RBC 4.86 (4.0-5.2) X10^6/uL Hgb 13.8 (12.0-16.0) g/dL Hct 42.2 (36-46) % MCV 86.9 (80-100) fL MCH 28.4 (26-34) PG MCHC 32.7 (30-36) % RDW 15.3 H (11.6-14.8) % Plt Count 326 (150-400) X10^3/uL Neut % (Auto) 40.6 L (50-75) % Lymph % (Auto) 43.3 H (25-40) % Brewster % (Auto) 8.3 (3-14) % Eos % (Auto) 6.6 H (2-4) % Baso % (Auto) 1.2 (0-2) % Neut # (Auto) 5300 (5886-7988) /uL PT 11.7 (10.1-12.7) SECONDS INR 1.0 (0.9-1.3) APTT 19 L D (26.4-36.2) SECONDS ABG pH (7.35-7.45) ABG pCO2 (35-45) mmHg ABG pO2 (80-100) mmHg ABG HCO3 (22-26) mmol/L ABG Total CO2 (21-31) mmol/L ABG O2 Saturation (95-100) % ABG Base Excess (-2-2) mmol/L FiO2 Sodium 139 (137-145) mmol/L Potassium 4.1 (3.4-5.1) mmol/L Chloride 104 (98-107) mmol/L Carbon Dioxide 23 (22-32) mmol/L BUN 13 (7-17) mg/dL Creatinine 0.80 (0.52-1.04) mg/dL Estimated GFR > 60.0 (>60) mL/min BUN/Creatinine Ratio 16.3 (6-22) Glucose 156 H (80-110) mg/dL Calcium 8.7 (8.4-10.2) mg/dL Troponin I < 0.012 (0.01-0.034) ng/mL Urine Color Urine Appearance Urine pH (4.5-8.0) Ur Specific Constantia (1.000-1.035) Urine Protein (Negative) Urine Glucose (UA) (Negative) g/dL Urine Ketones (NEGATIVE) Urine Occult Blood (Negative) Urine Nitrate (Negative) Urine Bilirubin (NEGATIVE) Urine Urobilinogen (0.2) E.U./dL Ur Leukocyte Esterase (NEGATIVE) Urine RBC (0-5/HPF) Urine WBC (0-5/HPF) Ur Squamous Epith Cells Urine Bacteria (None) Ur Culture Indicated? Urine Opiates Screen (Negative) Ur Oxycodone Screen (Negative) Urine Methadone Screen (Negative) Ur Barbiturates Screen (Negative) U Tricyclic Antidepress (Negative) Ur Phencyclidine Scrn (Negative) Ur Amphetamines Screen (Negative) U Methamphetamines Scrn (Negative) Ur MDMA Scrn (Ecstasy) (Negative) U Benzodiazepines Scrn (Negative) Urine Cocaine Screen (Negative) U Marijuana (THC) Screen (Negative) 04/30/18 04/30/18 04/30/18 Range/Units 08:20 08:20 08:45 WBC (4.5-11.0) X10^3/uL RBC (4.0-5.2) X10^6/uL Hgb (12.0-16.0) g/dL Hct (36-46) % MCV (80-100) fL MCH (26-34) PG MCHC (30-36) % RDW (11.6-14.8) % Plt Count (150-400) X10^3/uL Neut % (Auto) (50-75) % Lymph % (Auto) (25-40) % Brewster % (Auto) (3-14) % Eos % (Auto) (2-4) % Baso % (Auto) (0-2) % Neut # (Auto) (4968-3026) /uL PT (10.1-12.7) SECONDS INR (0.9-1.3) APTT (26.4-36.2) SECONDS ABG pH 7.28 L* (7.35-7.45) ABG pCO2 45.2 H (35-45) mmHg ABG pO2 259 H* (80-100) mmHg ABG HCO3 21 L (22-26) mmol/L ABG Total CO2 22 (21-31) mmol/L ABG O2 Saturation 100 (95-100) % ABG Base Excess -6.0 L (-2-2) mmol/L FiO2 100 Sodium (137-145) mmol/L Potassium (3.4-5.1) mmol/L Chloride (98-107) mmol/L Carbon Dioxide (22-32) mmol/L BUN (7-17) mg/dL Creatinine (0.52-1.04) mg/dL Estimated GFR (>60) mL/min BUN/Creatinine Ratio (6-22) Glucose (80-110) mg/dL Calcium (8.4-10.2) mg/dL Troponin I (0.01-0.034) ng/mL Urine Color Yellow Urine Appearance Clear Urine pH 6.0 (4.5-8.0) Ur Specific Constantia 1.015 (1.000-1.035) Urine Protein Negative (Negative) Urine Glucose (UA) Negative (Negative) g/dL Urine Ketones Negative (NEGATIVE) Urine Occult Blood Negative (Negative) Urine Nitrate Negative (Negative) Urine Bilirubin Negative (NEGATIVE) Urine Urobilinogen 0.2 (0.2) E.U./dL Ur Leukocyte Esterase Negative (NEGATIVE) Urine RBC None seen (0-5/HPF) Urine WBC None seen (0-5/HPF) Ur Squamous Epith Cells 0-1 /hpf D Urine Bacteria Moderate (10-30) H (None) Ur Culture Indicated? Cult not indicated Urine Opiates Screen Negative (Negative) Ur Oxycodone Screen Positive H (Negative) Urine Methadone Screen Negative (Negative) Ur Barbiturates Screen Negative (Negative) U Tricyclic Antidepress Positive H (Negative) Ur Phencyclidine Scrn Negative (Negative) Ur Amphetamines Screen Negative (Negative) U Methamphetamines Scrn Negative (Negative) Ur MDMA Scrn (Ecstasy) Negative (Negative) U Benzodiazepines Scrn Negative (Negative) Urine Cocaine Screen Negative (Negative) U Marijuana (THC) Screen Negative (Negative) Point of Care Testing Glucose POC [address] scan - head: Attestation: I personally reviewed and interpreted this imaging study as follows: My impression: Large subarachnoid intracranial hemorrhage with midline shift. Radiologist's impression: [address] [address] [address] Scan Report Signed Patient: Hilary Arizmendi MR#: [id number] : 1955 Acct:[id number] Age/Sex: 63 / F Date of Service: 04/30/18 Loc: ED Accession Number: [id number] Procedure: CT head/brain wo con Ordering Provider: Bea Blanchard D.O. PROCEDURE: CT HEAD/BRAIN WO CON INDICATIONS: cva, hemiparesis left started 630am today TECHNIQUE: Noncontrast 4.5 mm thick angled axial sections acquired from the foramen magnum to the vertex, with coronal and sagittal reformats. For radiation dose reduction, the following was used: automated exposure control, adjustment of mA and/or kV according to patient size. COMPARISON: [facility], CT, HEAD WITHOUT CONTRAST, 06/20/2014, 22:20. FINDINGS: Image quality: Excellent. CSF spaces: Basal cisterns are patent. No extra-axial fluid collections. The ventricles are symmetric in size and shape. Brain: There is a large acute intraparenchymal hematoma in the right frontal lobe measuring 8.5 x 4.1 x 4.5 cm. In addition, there is significant subarachnoid hemorrhage involving the basal cisterns, along the right cerebral sulci, right tentorium and within the right sylvian fissure, as well as the interhemispheric fissure. There is significant mass effect with effacement of cerebral sulci in the right hemisphere with effacement of right lateral ventricle. There is a 13 mm leftward midline shift. There is cerebral volume loss for age, with resultant ventricular and sulcal prominence. There are periventricular and deep white matter chronic small vessel ischemic changes. There is intracranial internal carotid artery atherosclerosis. Skull and face: Calvarium and visualized facial bones appear intact, without suspicious lesions. Sinuses: Visualized sinuses and mastoids are clear. IMPRESSION: 1. A large acute intraparenchymal hematoma in the right frontal lobe measuring 8.5 x 4.1 x 4.5 cm causing effacement of cerebral sulci of the right hemisphere and the right lateral ventricle with 13 mm leftward midline shift as well as subfalcine herniation. There is crowding and possible compression of brainstem. 2. There is also acute subarachnoid hemorrhage with clot within the basal cisterns, along the right cerebral sulci, right tentorium and within the right sylvian fissure, as well as the interhemispheric fissure. The preliminary result was communicated to Dr. Blanchard by Dr. Keller from the [facility] on 04/30/2018 at 7:40 hours. No significant discrepancy with the [facility] worker radiology preliminary report. Dictated by: Michi Isabel M.D. on 04/30/2018 at 8:01 Approved by: Michi Isabel M.D. on 04/30/2018 at 8:14 Chest x-ray: Attestation: I personally reviewed and interpreted this imaging study as follows: Radiologist's impression: [address] [address] XRay Report Signed Patient: Hilary Arizmendi MR#: [id number] : 1955 Acct:[id number] Age/Sex: 63 / F Date of Service: 04/30/18 Loc: ED Accession Number: [id number] Procedure: XR chest 1V Ordering Provider: Bea Blanchard D.O. PROCEDURE: XR CHEST 1V INDICATIONS: ET TUBE PLACEMENT TECHNIQUE: One view of the chest was acquired. COMPARISON: [facility], , XR CHEST 2V, 03/23/2018, 13:53. FINDINGS: Surgical changes and devices: ET tube tip is approximately 2 cm above the fermin. Lungs and pleura: Pulmonary vascular congestion is seen. Mild pulmonary edema is also noted. Cannot rule out small underlying patchy infiltrates. Mediastinum: Mediastinal contours appear normal. Heart size is enlarged. Bones and chest wall: No suspicious bony lesions. Overlying soft tissues appear unremarkable. IMPRESSION: ET tube appears in satisfactory position. CHF changes, cannot rule out underlying small patchy infiltrates. Dictated by: Jad Rodriguez M.D. on 04/30/2018 at 8:17 Approved by: Jad Rodriguez M.D. on 04/30/2018 at 8:18 ECG Data Attestation: I personally reviewed and interpreted this ECG as follows: Prior ECG tracings: available for review Interpretation: Sinus rhythm with a ventricular rate of 90 P are interval of 158 QRS of 90 and QTC of 426. No ST elevation depression. MDM Narrative Medical decision making narrative: Patient went straight to head CT non con, shows a large intraparenchymal bleed as well as subarachnoid. Results were called to me by night worker, they note that patient has a 13 mm shift, likely impending herniation and they suspect a ruptured aneurysm is the source. Spoke with patient's she is unable to speak for herself at this time he states that they would wish to have full resuscitation. He states that they had talked recently about this. We did discuss the likelihood of poor outcome and the risk of herniation and that this would cause brain and be on survival. Patient's is aware of this. Patient was intubated secondary to inability to protect her airway. She was oxygenating without issue Um prior to but her GCS is 8 and concerning will continue to worsen. Patient's lab work shows no major abnormalities, EMS came with patient's medications and does not appear she takes any blood thinners. Patient's was unsure. There is no record in the medical chart that she takes aspirin. Patient's pressure initially was in the 150s over 100 systolic. Most recent is 119/78. Patient is on a propofol drip, she is also receiving mannitol [address] Shelia Maldonado at [facility] who accepts for transfer. He asks that we maintain SBP less than 120, start nicardipine gtt if above. Patient was having some hypotension with propofal and not enough sedation, changing to fentanyl gtt. Given versed 2mg IV. Pupils on recheck are 3mm equal, reactive to light, patient breathing over the vent with spontaneous movement. Air lift arrived and patient BP increasing and nicardipine gtt started. [facility] and stable at this time. Critical Care Time Critical Care Time: Yes Total Critical Care Time: 95 Attestation: The high probability of a clinically significant, sudden or life threatening deterioration of the [neurologic, cardiac, respiratory] system(s) required my full and direct attention, intervention and personal management. The aggregate critical care time was [95] minutes. This time is in addition to time spent performing reported procedures but includes the following: [x] Data Review and interpretation [x] Patient assessment and monitoring of vital signs [x] Documentation [x] Medication orders and management Discharge Plan Departure Patient Disposition: [facility] Clinical Impression: Subarachnoid hemorrhage, Intraparenchymal hemorrhage of brain Discharge Date/Time: 04/30/18 09:15 Interventions: ED Discharge Assessment Last Done: 04/30/18 10:08 Prescriptions: No Action docusate sodium 100 MG capsule 300 mg PO HS Qty: 0 RF: 0 tiotropium bromide [Spiriva with HandiHaler] 18 mcg capsule, w/inhalation device 1 cap INHALATION DAILY Qty: 30 RF: 3 montelukast [Singulair] 10 mg tablet 10 mg PO QDAY Qty: 30 RF: 0 fluconazole [Diflucan] 150 mg tablet 150 mg PO ONCE Qty: 2 RF: 0 gabapentin [Neurontin] 600 mg tablet 600 mg PO BID Qty: 60 RF: 11 bisacodyl [Dulcolax (bisacodyl)] 5 mg tablet,delayed release (DR/EC) 5 mg PO BEDTIME RF: 0 hydrocortisone acetate [Anusol-HC] 25 mg suppository 25 mg AR QD-BID PRN (Reason: hemorrhoids) Qty: 12 RF: 0 zolpidem 5 mg tablet 5 mg PO BEDTIME PRN (Reason: insomnia) Qty: 30 RF: 2 tramadol 50 mg tablet 50 mg PO Q6HP PRN (Reason: pain) Qty: 120 RF: 0 oxycodone 5 mg tablet 5 mg PO Q4H PRN (Reason: Pain, Severe) Qty: 168 RF: 0 benzonatate 100 mg capsule 100 mg PO TID PRN (Reason: cough) Qty: 30 RF: 0 ipratropium-albuterol 0.5 mg-3 mg(2.5 mg base)/3 mL solution for nebulization 1 dose Inhalation QID PRN (Reason: Shortness Of Breath) RF: 0 albuterol sulfate [ProAir HFA] 90 mcg/actuation Hfa Aerosol Inhaler 2 puff Inhalation Q4-6H PRN (Reason: ashtma) RF: 0 beclomethasone dipropionate [Qvar RediHaler] 80 mcg/actuation Hfa Aerosol Breath Activated 1 puff INHALATION BID RF: 0 prednisone 20 mg tablet 40 mg PO DAILYX5 RF: 0 amitriptyline 50 MG tablet 50 mg PO BEDTIME RF: 0 meloxicam [Mobic] 7.5 MG tablet 7.5 mg PO DAILY RF: 0 diphenhydramine HCl [Benadryl Allergy] 25 MG tablet 25 mg PO Q6HP PRN (Reason: Allergy Symptoms) RF: 0 atenolol 50 mg tablet 50 mg PO DAILY RF: 0 furosemide 20 MG tablet 20 mg PO PRN PRN (Reason: edma) RF: 0 albuterol sulfate 1.25 mg/3 mL Solution For Nebulization 1.25 mg INHALATION BID RF: 0
[2018-04-30 07:59] LABS: Troponin I < 0.012 ng/mL (0.01-0.034)
--- NOTE | 2018-04-30 08:00 | ED_ITS ---
HPI - Altered Mental Status General Chief Complaint: Neuro Symptoms/Deficit Stated Complaint: Stroke Time Seen by Provider: 04/30/18 07:26 Source: family () Mode of arrival: EMS Limitations: altered mental status History of Present Illness HPI narrative: This is a 63-year-old female who comes to the emergency department with complaint of altered mental status. states that was awake she was sitting on the edge of the bed complaining of a headache, he helped her to the bathroom she did walk under her own power but he states her speech was slurred. He sat her on the toilet and then she sort of slumped backwards and became fairly unresponsive. EMS states that she is not using her left side at all. Patient has not been speaking since then. She is not on any blood thinners per EMS or the medications brought with her today. does not believe she is on any aspirin or other blood thinners. Patient does have a history of diabetes type 2, hypertension, COPD and obstructive sleep apnea Related Data Home Medications Medication Instructions Recorded Confirmed docusate sodium 300 mg PO HS #0 07/27/17 04/29/18 albuterol sulfate 1.25 mg INHALATION BID 10/06/17 04/29/18 furosemide 20 mg PO PRN PRN 10/06/17 04/29/18 bisacodyl 5 mg tablet,delayed 5 mg PO BEDTIME 10/16/17 04/29/18 release ipratropium-albuterol 1 dose INHALATION QID PRN 10/24/17 04/29/18 albuterol sulfate [ProAir HFA] 2 puff INHALATION Q4-6H PRN 04/30/18 04/30/18 amitriptyline 50 mg PO BEDTIME 04/30/18 04/30/18 atenolol 50 mg PO DAILY 04/30/18 04/30/18 beclomethasone dipropionate [Qvar 1 puff INHALATION BID 04/30/18 04/30/18 RediHaler] diphenhydramine HCl [Benadryl 25 mg PO Q6HP PRN 04/30/18 04/30/18 Allergy] meloxicam [Mobic] 7.5 mg PO DAILY 04/30/18 04/30/18 prednisone 40 mg PO DAILYX5 04/30/18 04/30/18 Previous Rx's Medication Instructions Recorded hydrocortisone acetate 25 mg 25 mg FL QD-BID PRN #12 each 11/10/17 rectal suppository tiotropium bromide 18 mcg capsule 1 cap INHALATION DAILY #30 12/02/17 with inhalation device inhalation montelukast 10 mg tablet 10 mg PO QDAY #30 tab 03/17/18 benzonatate 100 mg capsule 100 mg PO TID PRN #30 cap 03/23/18 oxycodone 5 mg tablet 5 mg PO Q4H PRN #168 tab 03/26/18 tramadol 50 mg tablet 50 mg PO Q6HP PRN #120 tab 03/26/18 zolpidem 5 mg tablet 5 mg PO BEDTIME PRN #30 tab 03/26/18 fluconazole 150 mg tablet 150 mg PO ONCE #2 tab 03/27/18 gabapentin 600 mg tablet 600 mg PO BID #60 tab 03/30/18 Allergies Allergy/AdvReac Type Severity Reaction Status Date / Time barley [BARLEY] Allergy Severe reports Verified 04/30/18 07:45 sneezing and everything closes up iodine [IODINE] Allergy Mild BLISTER Verified 04/30/18 07:45 Review of Systems Review of Systems ROS Unobtainable: Unobtainable due to mental status/LOC Exam Narrative Exam Narrative: GEN: Morbidly obese female, patient is able to squeeze my fingers when asked 2, she is not able to speak or interact with me in any other way, patient appears to be in severe distress. HEENT: Atraumatic, patient has a right lateral gaze deviation, pupils are equal reactive to light 5 mm bilaterally nares are clear, TMs are clear with no fluid , there is no conjunctival pallor. Throat is clear without any exudates, erythema, tonsillar enlargement or uvular deviation HEART: Regular rate and rhythm without murmur, clicks, rubs. LUNGS:Lungs clear to auscultation, no wheezes, rales, crackles, chest moves symmetrically ABD:bowel sounds normal, soft, non-tender, no guarding, rebound, rigidity, no masses noted, no hepatosplenomegaly :No CVA tenderness MSCL: Non-tender, no muscle atrophy, patient has good squeeze and motion of her right upper extremity, she does localize on the left to pain but does not have squeeze or follow commands. Patient has some mild movement of her right lower extremity none of the left lower extremity. NEURO:CN 2-12 intact, sensation normal. Initial Vital Signs Initial Vital Signs: Vital Signs Temperature 97.3 F L 04/30/18 07:33 Pulse Rate 66 04/30/18 07:33 Respiratory Rate 20 04/30/18 07:33 Blood Pressure 152/108 H 04/30/18 07:33 Pulse Oximetry 100 04/30/18 07:33 Procedures Intubation Time out performed: Yes sedative: Etomidate Mg Given: 10 paralytic: Succinylcholine Mg Given: 150 Laryngoscope: fiber optic video scope ET Tube Size: 7.5 ET Tube Uncuffed: Yes Tube Secured Depth (cm): 23 Tube Secured Location: teeth Tube Placement Confirmation: Visualized tube passing through cords, Equal breath sounds bilaterally, No breath sounds over epigastrium, Confirmation by capnometry and Chest Xray Patient Tolerated Procedure: Well Intubation Complications: difficult intubation (See below) Additional Comments: Patient appeared to have her ET tube through the cords initially she had good color change on capnography but oxygen continued to drop into the 60s and then 50s. ET tube was removed, patient was repositioned oxygen improved into the 90s almost immediately, intubation was re-attempted and patient ETT appear to go through the cords, she had good color change on capnography, oxygen continued to maintain in the 90s and 100 range. Chest x- ray shows ET tube in appropriate placement. Scores GCS [place] coma scale eye opening: None Taya coma scale verbal response: None Taya coma scale motor response: Obey commands Taya coma scale total score: 8 Course Orders Ordered: Discontinued Medications Etomidate (Amidate) 10 mg IV NOW ONE Stop: 04/30/18 07:46 Last Admin: 04/30/18 07:45 Dose: 10 mg Etomidate (Amidate) 40 mg IV NOW ONE Stop: 04/30/18 08:03 Last Admin: 04/30/18 08:02 Dose: 40 mg Sodium Chloride (Normal Saline 0.9%) 1,000 mls @ 150 mls/hr IV CONT GUIDO Last Infusion: 04/30/18 09:19 Dose: 150 mls/hr Admin: 04/30/18 08:06 Dose: 150 mls/hr Mannitol (Osmitrol) 50 gm in 250 mls @ 500 mls/hr IV NOW ONE Stop: 04/30/18 08:44 Last Infusion: 04/30/18 08:38 Dose: 0 mls/hr Admin: 04/30/18 08:01 Dose: 500 mls/hr Nicardipine HCl 25 mg/ Sodium (Chloride) 250 mls @ 25 mls/hr IV TITRATE PRN; Protocol PRN Reason: HYPERTENSION Last Titration: 04/30/18 09:20 Dose: 5 mls/hr, 5 mls/hr Admin: 04/30/18 08:46 Dose: 5 mls/hr, 5 mls/hr Fentanyl 1,000 mcg/ Dextrose 270 mls @ 15.8 mls/hr IV TITRATE GUIDO; Protocol Last Titration: 04/30/18 09:20 Dose: 0.69 mcg/kg/hr, 15.8 mls/hr Admin: 04/30/18 08:49 Dose: 0.7 mcg/kg/hr, 15.8 mls/hr Midazolam HCl (Versed) 2 mg IV NOW ONE Stop: 04/30/18 08:23 Last Admin: 04/30/18 08:44 Dose: 2 mg Propofol (Diprivan) 40 mg 0.5 mg/kg (40 mg) IV NOW ONE Stop: 04/30/18 08:01 Last Admin: 04/30/18 09:36 Dose: 40 mg Propofol (Diprivan) 60 mg IV NOW ONE Stop: 04/30/18 08:21 Last Admin: 04/30/18 09:37 Dose: 60 mg Succinylcholine Chloride (Quelicin) 150 mg IV PROTOCOL ONE Stop: 04/30/18 07:46 Last Admin: 04/30/18 07:45 Dose: 150 mg Vital Signs - 8 hr 04/30/18 07:33 04/30/18 07:42 04/30/18 08:05 Temperature 97.3 F L Pulse Rate 66 66 107 H Respiratory Rate 20 24 Blood Pressure 152/108 H Blood Pressure [Left Arm] 184/94 H 144/98 H Pulse Oximetry 100 100 100 04/30/18 08:08 04/30/18 08:10 04/30/18 08:24 Temperature Pulse Rate 110 H 113 H 108 H Respiratory Rate 16 16 18 Blood Pressure Blood Pressure [Left Arm] 119/85 119/85 105/73 Pulse Oximetry 100 100 99 04/30/18 08:27 01/10/19 08:48 Temperature Pulse Rate 107 H 53 L Respiratory Rate 18 18 Blood Pressure Blood Pressure [Left Arm] 102/71 154/95 H Pulse Oximetry 100 100 MDM - Altered Mental Status Lab Data Attestation: I reviewed the patient's lab results. Result diagrams: 04/30/18 07:20 04/30/18 07:20 Lab Results 04/30/18 04/30/18 04/30/18 Range/Units 07:20 07:20 07:20 WBC 13.1 H (4.5-11.0) X10^3/uL RBC 4.86 (4.0-5.2) X10^6/uL Hgb 13.8 (12.0-16.0) g/dL Hct 42.2 (36-46) % MCV 86.9 (80-100) fL MCH 28.4 (26-34) PG MCHC 32.7 (30-36) % RDW 15.3 H (11.6-14.8) % Plt Count 326 (150-400) X10^3/uL Neut % (Auto) 40.6 L (50-75) % Lymph % (Auto) 43.3 H (25-40) % Cecil % (Auto) 8.3 (3-14) % Eos % (Auto) 6.6 H (2-4) % Baso % (Auto) 1.2 (0-2) % Neut # (Auto) 5300 (0453-8982) /uL PT 11.7 (10.1-12.7) SECONDS INR 1.0 (0.9-1.3) APTT 19 L D (26.4-36.2) SECONDS ABG pH (7.35-7.45) ABG pCO2 (35-45) mmHg ABG pO2 (80-100) mmHg ABG HCO3 (22-26) mmol/L ABG Total CO2 (21-31) mmol/L ABG O2 Saturation (95-100) % ABG Base Excess (-2-2) mmol/L FiO2 Sodium 139 (137-145) mmol/L Potassium 4.1 (3.4-5.1) mmol/L Chloride 104 (98-107) mmol/L Carbon Dioxide 23 (22-32) mmol/L BUN 13 (7-17) mg/dL Creatinine 0.80 (0.52-1.04) mg/dL Estimated GFR > 60.0 (>60) mL/min BUN/Creatinine Ratio 16.3 (6-22) Glucose 156 H (80-110) mg/dL Calcium 8.7 (8.4-10.2) mg/dL Troponin I < 0.012 (0.01-0.034) ng/mL Urine Color Urine Appearance Urine pH (4.5-8.0) Ur Specific [place] (1.000-1.035) Urine Protein (Negative) Urine Glucose (UA) (Negative) g/dL Urine Ketones (NEGATIVE) Urine Occult Blood (Negative) Urine Nitrate (Negative) Urine Bilirubin (NEGATIVE) Urine Urobilinogen (0.2) E.U./dL Ur Leukocyte Esterase (NEGATIVE) Urine RBC (0-5/HPF) Urine WBC (0-5/HPF) Ur Squamous Epith Cells Urine Bacteria (None) Ur Culture Indicated? Urine Opiates Screen (Negative) Ur Oxycodone Screen (Negative) Urine Methadone Screen (Negative) Ur Barbiturates Screen (Negative) U Tricyclic Antidepress (Negative) Ur Phencyclidine Scrn (Negative) Ur Amphetamines Screen (Negative) U Methamphetamines Scrn (Negative) Ur MDMA Scrn (Ecstasy) (Negative) U Benzodiazepines Scrn (Negative) Urine Cocaine Screen (Negative) U Marijuana (THC) Screen (Negative) 04/30/18 04/30/18 04/30/18 Range/Units 08:20 08:20 08:45 WBC (4.5-11.0) X10^3/uL RBC (4.0-5.2) X10^6/uL Hgb (12.0-16.0) g/dL Hct (36-46) % MCV (80-100) fL MCH (26-34) PG MCHC (30-36) % RDW (11.6-14.8) % Plt Count (150-400) X10^3/uL Neut % (Auto) (50-75) % Lymph % (Auto) (25-40) % Cecil % (Auto) (3-14) % Eos % (Auto) (2-4) % Baso % (Auto) (0-2) % Neut # (Auto) (8998-2229) /uL PT (10.1-12.7) SECONDS INR (0.9-1.3) APTT (26.4-36.2) SECONDS ABG pH 7.28 L* (7.35-7.45) ABG pCO2 45.2 H (35-45) mmHg ABG pO2 259 H* (80-100) mmHg ABG HCO3 21 L (22-26) mmol/L ABG Total CO2 22 (21-31) mmol/L ABG O2 Saturation 100 (95-100) % ABG Base Excess -6.0 L (-2-2) mmol/L FiO2 100 Sodium (137-145) mmol/L Potassium (3.4-5.1) mmol/L Chloride (98-107) mmol/L Carbon Dioxide (22-32) mmol/L BUN (7-17) mg/dL Creatinine (0.52-1.04) mg/dL Estimated GFR (>60) mL/min BUN/Creatinine Ratio (6-22) Glucose (80-110) mg/dL Calcium (8.4-10.2) mg/dL Troponin I (0.01-0.034) ng/mL Urine Color Yellow Urine Appearance Clear Urine pH 6.0 (4.5-8.0) Ur Specific [place] 1.015 (1.000-1.035) Urine Protein Negative (Negative) Urine Glucose (UA) Negative (Negative) g/dL Urine Ketones Negative (NEGATIVE) Urine Occult Blood Negative (Negative) Urine Nitrate Negative (Negative) Urine Bilirubin Negative (NEGATIVE) Urine Urobilinogen 0.2 (0.2) E.U./dL Ur Leukocyte Esterase Negative (NEGATIVE) Urine RBC None seen (0-5/HPF) Urine WBC None seen (0-5/HPF) Ur Squamous Epith Cells 0-1 /hpf D Urine Bacteria Moderate (10-30) H (None) Ur Culture Indicated? Cult not indicated Urine Opiates Screen Negative (Negative) Ur Oxycodone Screen Positive H (Negative) Urine Methadone Screen Negative (Negative) Ur Barbiturates Screen Negative (Negative) U Tricyclic Antidepress Positive H (Negative) Ur Phencyclidine Scrn Negative (Negative) Ur Amphetamines Screen Negative (Negative) U Methamphetamines Scrn Negative (Negative) Ur MDMA Scrn (Ecstasy) Negative (Negative) U Benzodiazepines Scrn Negative (Negative) Urine Cocaine Screen Negative (Negative) U Marijuana (THC) Screen Negative (Negative) Point of Care Testing Glucose POC [address] scan - head: Attestation: I personally reviewed and interpreted this imaging study as follows: My impression: Large subarachnoid intracranial hemorrhage with midline shift. Radiologist's impression: [address] [address] [address] Scan Report Signed Patient: Hilary Arizmendi MR#: [id number] : 1955 Acct:[id number] Age/Sex: 63 / F Date of Service: 04/30/18 Loc: ED Accession Number: [id number] Procedure: CT head/brain wo con Ordering Provider: Bea Blanchard D.O. PROCEDURE: CT HEAD/BRAIN WO CON INDICATIONS: cva, hemiparesis left started 630am today TECHNIQUE: Noncontrast 4.5 mm thick angled axial sections acquired from the foramen magnum to the vertex, with coronal and sagittal reformats. For radiation dose reduction, the following was used: automated exposure control, adjustment of mA and/or kV according to patient size. COMPARISON: [facility], CT, HEAD WITHOUT CONTRAST, 06/20/2014, 22:20. FINDINGS: Image quality: Excellent. CSF spaces: Basal cisterns are patent. No extra-axial fluid collections. The ventricles are symmetric in size and shape. Brain: There is a large acute intraparenchymal hematoma in the right frontal lobe measuring 8.5 x 4.1 x 4.5 cm. In addition, there is significant subarachnoid hemorrhage involving the basal cisterns, along the right cerebral sulci, right tentorium and within the right sylvian fissure, as well as the interhemispheric fissure. There is significant mass effect with effacement of cerebral sulci in the right hemisphere with effacement of right lateral ventricle. There is a 13 mm leftward midline shift. There is cerebral volume loss for age, with resultant ventricular and sulcal prominence. There are periventricular and deep white matter chronic small vessel ischemic changes. There is intracranial internal carotid artery atherosclerosis. Skull and face: Calvarium and visualized facial bones appear intact, without suspicious lesions. Sinuses: Visualized sinuses and mastoids are clear. IMPRESSION: 1. A large acute intraparenchymal hematoma in the right frontal lobe measuring 8.5 x 4.1 x 4.5 cm causing effacement of cerebral sulci of the right hemisphere and the right lateral ventricle with 13 mm leftward midline shift as well as subfalcine herniation. There is crowding and possible compression of brainstem. 2. There is also acute subarachnoid hemorrhage with clot within the basal cisterns, along the right cerebral sulci, right tentorium and within the right sylvian fissure, as well as the interhemispheric fissure. The preliminary result was communicated to Dr. Blanchard by Dr. Keller from the [facility] on 04/30/2018 at 7:40 hours. No significant discrepancy with the [facility] preliminary report. Dictated by: Michi Isabel M.D. on 04/30/2018 at 8:01 Approved by: Michi Isabel M.D. on 04/30/2018 at 8:14 Chest x-ray: Attestation: I personally reviewed and interpreted this imaging study as follows: Radiologist's impression: [address] [address] XRay Report Signed Patient: Hilary Arizmendi MR#: [id number] : 1955 Acct:[id number] Age/Sex: 63 / F Date of Service: 04/30/18 Loc: ED Accession Number: [id number] Procedure: XR chest 1V Ordering Provider: Bea Blanchard D.O. PROCEDURE: XR CHEST 1V INDICATIONS: ET TUBE PLACEMENT TECHNIQUE: One view of the chest was acquired. COMPARISON: [facility], , XR CHEST 2V, 03/23/2018, 13:53. FINDINGS: Surgical changes and devices: ET tube tip is approximately 2 cm above the fermin. Lungs and pleura: Pulmonary vascular congestion is seen. Mild pulmonary edema is also noted. Cannot rule out small underlying patchy infiltrates. Mediastinum: Mediastinal contours appear normal. Heart size is enlarged. Bones and chest wall: No suspicious bony lesions. Overlying soft tissues appear unremarkable. IMPRESSION: ET tube appears in satisfactory position. CHF changes, cannot rule out underlying small patchy infiltrates. Dictated by: Jad Rodriguez M.D. on 04/30/2018 at 8:17 Approved by: Jad Rodriguez M.D. on 04/30/2018 at 8:18 ECG Data Attestation: I personally reviewed and interpreted this ECG as follows: Prior ECG tracings: available for review Interpretation: Sinus rhythm with a ventricular rate of 90 P are interval of 158 QRS of 90 and QTC of 426. No ST elevation depression. MDM Narrative Medical decision making narrative: Patient went straight to head CT non con, shows a large intraparenchymal bleed as well as subarachnoid. Results were called to me by [facility], they note that patient has a 13 mm shift, likely impending herniation and they suspect a ruptured aneurysm is the source. Spoke with patient's she is unable to speak for herself at this time he states that they would wish to have full resuscitation. He states that they had talked recently about this. We did discuss the likelihood of poor outcome and the risk of herniation and that this would cause brain and be on survival. Patient's is aware of this. Patient was intubated secondary to inability to protect her airway. She was oxygenating without issue Um prior to but her GCS is 8 and concerning will continue to worsen. Patient's lab work shows no major abnormalities, EMS came with patient's medications and does not appear she takes any blood thinners. Patient's was unsure. There is no record in the medical chart that she takes aspirin. Patient's pressure initially was in the 150s over 100 systolic. Most recent is 119/78. Patient is on a propofol drip, she is also receiving mannitol [address] Shelia Maldonado at [facility] who accepts for transfer. He asks that we maintain SBP less than 120, start nicardipine gtt if above. Patient was having some hypotension with propofal and not enough sedation, changing to fentanyl gtt. Given versed 2mg IV. Pupils on recheck are 3mm equal, reactive to light, patient breathing over the vent with spontaneous movement. Air lift arrived and patient BP increasing and nicardipine gtt started. [facility] at this time. Critical Care Time Critical Care Time: Yes Total Critical Care Time: 95 Attestation: The high probability of a clinically significant, sudden or life threatening deterioration of the [neurologic, cardiac, respiratory] system(s) required my full and direct attention, intervention and personal management. The aggregate critical care time was [95] minutes. This time is in addition to time spent performing reported procedures but includes the following: [x] Data Review and interpretation [x] Patient assessment and monitoring of vital signs [x] Documentation [x] Medication orders and management Discharge Plan Departure Patient Disposition: [facility] Clinical Impression: Subarachnoid hemorrhage, Intraparenchymal hemorrhage of brain Discharge Date/Time: 04/30/18 09:15 Interventions: ED Discharge Assessment Last Done: 04/30/18 10:08 Prescriptions: No Action docusate sodium 100 MG capsule 300 mg PO HS Qty: 0 RF: 0 tiotropium bromide [Spiriva with HandiHaler] 18 mcg capsule, w/inhalation device 1 cap INHALATION DAILY Qty: 30 RF: 3 montelukast [Singulair] 10 mg tablet 10 mg PO QDAY Qty: 30 RF: 0 fluconazole [Diflucan] 150 mg tablet 150 mg PO ONCE Qty: 2 RF: 0 gabapentin [Neurontin] 600 mg tablet 600 mg PO BID Qty: 60 RF: 11 bisacodyl [Dulcolax (bisacodyl)] 5 mg tablet,delayed release (DR/EC) 5 mg PO BEDTIME RF: 0 hydrocortisone acetate [Anusol-HC] 25 mg suppository 25 mg FL QD-BID PRN (Reason: hemorrhoids) Qty: 12 RF: 0 zolpidem 5 mg tablet 5 mg PO BEDTIME PRN (Reason: insomnia) Qty: 30 RF: 2 tramadol 50 mg tablet 50 mg PO Q6HP PRN (Reason: pain) Qty: 120 RF: 0 oxycodone 5 mg tablet 5 mg PO Q4H PRN (Reason: Pain, Severe) Qty: 168 RF: 0 benzonatate 100 mg capsule 100 mg PO TID PRN (Reason: cough) Qty: 30 RF: 0 ipratropium-albuterol 0.5 mg-3 mg(2.5 mg base)/3 mL solution for nebulization 1 dose Inhalation QID PRN (Reason: Shortness Of Breath) RF: 0 albuterol sulfate [ProAir HFA] 90 mcg/actuation Hfa Aerosol Inhaler 2 puff Inhalation Q4-6H PRN (Reason: ashtma) RF: 0 beclomethasone dipropionate [Qvar RediHaler] 80 mcg/actuation Hfa Aerosol Breath Activated 1 puff INHALATION BID RF: 0 prednisone 20 mg tablet 40 mg PO DAILYX5 RF: 0 amitriptyline 50 MG tablet 50 mg PO BEDTIME RF: 0 meloxicam [Mobic] 7.5 MG tablet 7.5 mg PO DAILY RF: 0 diphenhydramine HCl [Benadryl Allergy] 25 MG tablet 25 mg PO Q6HP PRN (Reason: Allergy Symptoms) RF: 0 atenolol 50 mg tablet 50 mg PO DAILY RF: 0 furosemide 20 MG tablet 20 mg PO PRN PRN (Reason: edma) RF: 0 albuterol sulfate 1.25 mg/3 mL Solution For Nebulization 1.25 mg INHALATION BID RF: 0
[2018-04-30] MEDS: MANNITOL IV (08:01)
[2018-04-30] MEDS: ETOMIDATE 2 MG/ML VIAL 40 MG IV (08:02)
[2018-04-30] MEDS: SODIUM CHLORIDE 0.9% 1,000 ML 150 ML IV (08:06)
[2018-04-30 08:37] LABS: RBC Urine None Seen (0-5/HPF); WBC Urine None Seen (0-5/HPF)
[2018-04-30] MEDS: MIDAZOLAM 5 MG/ML VIAL 2 MG IV (08:44)
[2018-04-30 08:46] LABS: Urine Amphetamines Negative (Negative); Urine Barbiturates Negative (Negative); Urine Benzodiazepines Negative (Negative); Urine Cocaine Negative (Negative); Urine MDMA Negative (Negative); Urine Methadone Negative (Negative); Urine Methamphetamines Negative (Negative); Urine Morphine/Opi cutoff 2000 Negative (Negative); Urine Oxycodone Positive (Negative); Urine Phencyclidine Negative (Negative); Urine Tetrahydrocannabinol Negative (Negative); Urine Tricyclic Antidepressant Positive (Negative)
[2018-04-30] MEDS: NICARDIPINE 25 MG in SODIUM CHLORIDE 0.9% 240 ML IV (08:46)
--- NOTE | 2018-04-30 08:48 | PC.NURSE ---
DHARMESH STARTED THE NICARDIPINE AND FENTANYL DRIP
[2018-04-30] MEDS: fentaNYL 1,000 MCG in DEXTROSE 5% IN WATER 250 ML 15.8 ML IV (08:49)
[2018-04-30 08:55] LABS: Appearance Urine UA CLEAR; Bacteria Urine Moderate (10-30); Bilirubin Urine UA NEGATIVE (NEGATIVE); Color Urine UA YELLOW; Glucose Urine UA NEGATIVE (Negative); Ketones Urine UA NEGATIVE (NEGATIVE); Leukocyte Esterase Urine UA NEGATIVE (NEGATIVE); Nitrite Urine UA NEGATIVE (Negative); Occult Blood Urine UA NEGATIVE (Negative); Protein Urine UA NEGATIVE (Negative); Specific Gravity Urine UA 1.015 (1.000-1.035); Squamous Epithelial Cell Urine 0-1 /HPF; Urobilinogen Urine UA 0.2 E.U./dL (0.2)
[2018-04-30 08:56] LABS: Culture Indicated Urine Cult Not Indicated
--- NOTE | 2018-04-30 09:21 | PC.NURSE ---
airlift started and continued the fentanyl gtt and nicardipine gtt. see airlift records for exact infusion rates.
[2018-04-30 09:30] LABS: HCO3 ABG 21 mmol/L (22-26); PCO2 ABG 45.2 mmHg (35-45); PO2 ABG 259 mmHg (80-100); pH ABG 7.28 (7.35-7.45)
[2018-04-30 09:31] LABS: Oxygen Saturation ABG 100 % (95-100); TCO2 ABG 22 mmol/L (21-31)
[2018-04-30 09:32] LABS: Fractionated Inspired Oxygen 100
[2018-04-30] MEDS: PROPOFOL 200 MG/20 ML VIAL 40 MG IV (09:36)
[2018-04-30] MEDS: PROPOFOL 200 MG/20 ML VIAL 60 MG IV (09:37)
--- NOTE | 2018-04-30 09:47 | PC.NURSE ---
unable to complete a NIH Stroke scale completely. pt is unresponsive. non purposeful movements. was able to squeeze with right hand and would not let go when asked. gave a 20 on nihss scale but unable to complete the scale. at bedside.
--- NOTE | 2018-04-30 10:03 | PC.NURSE ---
pt was intubated around 0806. OETT 7.5cm, 23 at the lip. , etco2 was delayed being put on ventilator with RT.
--- NOTE | 2018-04-30 10:15 | PC.NURSE ---
since patient arrival to [facility], Staff was able to be supportive to and family. head of science was at bedside with family until airlift took her to [facility].
== END 2018-04-30 09:15 | disposition short-term general hospital (02) ==
LOC: ED 08:43
PROVIDERS: Emergency Provider Emergency Medicine; PCP Family Medicine
DX: I60.9 Nontraumatic subarachnoid hemorrhage, unspecified (principal); I61.9 Nontraumatic intracerebral hemorrhage, unspecified
CPT/HCPCS: 36415; 36600; 51701; 70450; 71045; 80048; 80305; 81001; 82805; 82962; 84484; 85025; 85610; 85730; 93005; 94002; 94770; 94799; 96365; 96367; 96368; 96375; 96376; 99285; 99291; 99292; J0330; J2250; J2704; J3010